=== PATIENT | male | born 1990 ===

== ENCOUNTER 2018-01-16 01:15 | Inpatient (IN) | payer MEDICAID, OTHER ==
[2018-01-16 01:15] VITALS: BMI 25.7
[2018-01-16 02:20] LABS: BASO # 0.1 K/uL (0.0-0.2); BASO % 0.7 % (0.0-2.0); EOS # 0.1 K/uL (0.0-0.7); EOS % 0.5 % (0.0-4.0); HEMOGLOBIN 14.3 g/dL (12.0-18.0); LYMPH # 4.2 K/uL (1.0-4.3); MEAN CELL VOLUME 82.8 fl (80.0-94.0); MEAN CORPUSCULAR HEMOGLOBIN 27.3 pg (27.0-31.0); MEAN CORPUSCULAR HGB CONC 32.9 g/dL (33.0-37.0); MEAN PLATELET VOLUME 9.3 fl (7.2-11.7); MONO % 6.4 % (0.0-10.0); NEUT # 10.8 K/uL (1.8-7.0); NEUT % 66.4 % (50.0-75.0); RBC 5.24 Mil/uL (4.40-5.90); RED CELL DISTRIBUTION WIDTH 14.6 % (11.5-14.5); WHITE BLOOD COUNT 16.3 K/uL (4.8-10.8)
--- NOTE | 2018-01-16 02:23 | CT ---
EXAM: CT Head Without Intravenous Contrast CLINICAL HISTORY: 27 years old, male; Signs and symptoms; Altered mental status/memory loss; Additional info: AMS TECHNIQUE: Axial computed tomography images of the head/brain without intravenous contrast. All CT scans at this facility use one or more dose reduction techniques, viz.: automated exposure control; ma/kV adjustment per patient size (including targeted exams where dose is matched to indication; i.e. head); or iterative reconstruction technique. 311 images are submitted. Coronal and sagittal reformatted images were created and reviewed. COMPARISON: No relevant prior studies available. FINDINGS: Brain: Unremarkable. No hemorrhage. No significant white matter disease. No edema. Ventricles: Unremarkable. No ventriculomegaly. Bones/joints: Unremarkable. No acute fracture. Soft tissues: Unremarkable. Sinuses: Minimal patchy sinus disease. Mastoid air cells: Unremarkable. No mastoid effusion. IMPRESSION: No evidence of an acute intracranial hemorrhage, midline shift or mass effect is identified.
[2018-01-16 02:30] LABS: ALB/GLOB RATIO 1.4 (1.0-2.1); ALBUMIN 4.4 g/dL (3.5-5.0); ALT/SGPT 37 U/L (21-72); AST/SGOT 68 U/L (17-59); BLOOD UREA NITROGEN 23 mg/dl (9-20); CALCIUM 9.2 mg/dL (8.4-10.2); GFR AFRICAN-AMERICAN > 60; GFR NON-AFRICAN AMERICAN 51
--- NOTE | 2018-01-16 03:08 | ED PDOC ---
HPI: Psych/Substance Abuse Time Seen by Provider: 01/16/18 01:29 Chief Complaint (Nursing): Substance Abuse Chief Complaint (Provider): substance abuse ED Caveat: Altered Mental Status, Respiratory Distress History Per: EMS History/Exam Limitations: no limitations Onset/Duration Of Symptoms: Days (01/15/18) Current Symptoms Are (Timing): Better Modifying Factor(s): Narcotics Additional History Per: Patient Additional Complaint(s): 27 year old male with a past medical history of seizure was brought into the ED by ambulance for overdose. Patient was on street unconscious and unresponsive. He has a history of substance abuse and anxiety. Prior to arrival, he had vomited and was given nasal narcan by EMS. Patient became conscious and awake in the ED. PMD: Provider ALONDRA Past Medical History Reviewed: Historical Data, Nursing Documentation, Vital Signs Vital Signs: Last Vital Signs Temp Pulse 97 H 01/16/18 01:19 Resp 18 01/16/18 01:19 BP 163/95 H 01/16/18 01:19 Pulse Ox 91 L 01/16/18 01:19 - Medical History PMH: Seizures (COLLEGE YEARS) Denies: Diabetes, Hepatitis, HIV, HTN, Chronic Kidney Disease, Sexually Transmitted Disease - Surgical History Surgical History: No Surg Hx - Family History Family History: States: Unknown Family Hx - Immunization History Hx Tetanus Toxoid Vaccination: Yes (2011) Hx Influenza Vaccination: No Hx Pneumococcal Vaccination: No - Home Medications Home Medications: Ambulatory Orders Medication Instructions Recorded Benztropine [Cogentin] 1 mg PO BID #60 tab 04/29/17 Divalproex [Depakote DR] 500 mg PO BID #60 tcp 04/29/17 Haloperidol [Haldol] 10 mg PO BID #60 tab 04/29/17 traZODone [Desyrel] 50 mg PO HS PRN #30 tab 04/29/17 - Allergies Allergies/Adverse Reactions: Allergies Allergy/AdvReac Type Severity Reaction Status Date / Time No Known Allergies Allergy Verified 06/19/17 15:00 Review of Systems ROS Statement: Except As Marked, All Systems Reviewed And Found Negative Constitutional: Negative for: Fever Cardiovascular: Negative for: Chest Pain Respiratory: Positive for: Cough. Negative for: Shortness of Breath Gastrointestinal: Positive for: Vomiting Psych: Negative for: Suicidal ideation (homicidal ideation) Physical Exam - Reviewed Nursing Documentation Reviewed: Yes Vital Signs Reviewed: Yes - Physical Exam Appears: Positive for: Non-toxic, No Acute Distress Head Exam: Positive for: ATRAUMATIC, NORMAL INSPECTION, NORMOCEPHALIC Skin: Positive for: Normal Color, Warm, Diaphoresis Eye Exam: Positive for: Normal appearance, EOMI. Negative for: PERRL (pinpoint) ENT: Positive for: Normal ENT Inspection Neck: Positive for: Normal, Painless ROM, Supple. Negative for: Decreased ROM Cardiovascular/Chest: Positive for: Regular Rate, Rhythm. Negative for: Murmur , Tachycardia Respiratory: Positive for: Normal Breath Sounds, Respiratory Distress (mild). Negative for: Wheezing Gastrointestinal/Abdominal: Positive for: Normal Exam, Bowel Sounds, Soft. Negative for: Tenderness Extremity: Positive for: Normal ROM. Negative for: Tenderness, Pedal Edema, Deformity Neurologic/Psych: Positive for: Alert (awake during exam), Oriented (x2). Negative for: Motor/Sensory Deficits - Laboratory Results Result Diagrams: 01/16/18 02:17 01/16/18 02:17 - ECG ECG: Positive for: Interpreted By Me, Viewed By Me ECG Rhythm: Positive for: Normal QRS, Sinus Rhythm (normal). Negative for: ST/ T Changes Rate: 82 O2 Sat by Pulse Oximetry: 91 (RA) Pulse Ox Interpretation: Normal - Radiology X-Ray: Interpreted by Me, Viewed By In X-Ray Interpretation: Infiltrates - Critical Care Total Time (In Min): 60 Documented Critical Care: Time excludes all time spent performint seperately billable procedures Medical Decision Making Medical Decision Making: Time:128 Initial Impression: Substance abuse/overdose with heroin and vomiting Differential Diagnosis includes but is not limited to: Recurrent seizure not possible rule out head injury Initial Plan: --ABD (arterial blood gas) --CT Head w/o contrast --EKG --Alcohol serum --CMP --CPK --Drug screen --CBC w/ differential --Chest portable [RAD] --Reevaluation Time: 222 EXAM: CT Head Without Intravenous Contrast FINDINGS: Brain: Unremarkable. No hemorrhage. No significant white matter disease. No edema. Ventricles: Unremarkable. No ventriculomegaly. Bones/joints: Unremarkable. No acute fracture. Soft tissues: Unremarkable. Sinuses: Minimal patchy sinus disease. Mastoid air cells: Unremarkable. No mastoid effusion. IMPRESSION: No evidence of an acute intracranial hemorrhage, midline shift or mass effect is identified. 0400 Upon reevaluation patient appears alert awake but in respiratory distress, became hypoxic in 80s on nasal cannula, and hypertensive. Patient reports rigors. Noted to have new fever 103. Patient initially refused chest xray ordered upon arrival. CXR was done stat considering worsening condition. CXR reveals left sided infiltrates/edema possible ARDS/aspiration pneumonia. ABG reveals improved respiratory acidosis but still with hypoxia. Acute respiratory failure. BIPAP started. Mild improvement in hypoxia. Preoxygenated. Patient will be intubated for worsening respiratory failure and aspiration pneumonia Hypertension likely from fever r/o hypertensive pulmonary edema from substance abuse: given SL nitro one. Will hold on nitro drip Fever: likely from aspiration pneumonia. Unlikely sepsis. Starting antibiotics. IVF. Symptomatic care provided. EKG n2: sinus tachycardia, unchanged intervals. Patient requires critical care consult which obtained at time. No other consults envisioned at this time. 0500 Patient is stable after intubation. On propofol drip. Hypertension resolved. Ventilating appropriately. CXR post intubation reviewed: ETT in place above andrew. Left pulmonary infiltrates. Scribe Attestation: Documented by Rafia Camara, acting as a scribe for Tim Barboza MD Provider Scribe Attestation: All medical record entries made by the Scribe were at my direction and personally dictated by me. I have reviewed the chart and agree that the record accurately reflects my personal performance of the history, physical exam, medical decision making, and the department course for this patient. I have also personally directed, reviewed, and agree with the discharge instructions and disposition. Procedures - Time-Out Type of Procedure: RSI Site of Procedure: trachea Correct Patient (with visual ID + MR# on ID Band): Yes Correct Procedure: Yes Correct Site Marked: Yes X-Ray Marked: Yes Medication Reconciliation / Bloodwork / Allergies Checked: Yes Physician Name: Jabari - Intubation Time of Intubation: 04:40 (emergent indications) Intubation Method: orotracheal Tube Size (cm): 7.5 Medications: Succinylcholine (etomidate) Breath Sounds after Intubation: equal Intubation Complications: no complications Post Intubation Xray: Yes Disposition - Clinical Impression Clinical Impression: Aspiration pneumonia, Heroin overdose, Substance abuse, Acute respiratory failure with hypoxemia - Patient ED Disposition Is Patient to be Admitted: Yes Discussed With : Lindsay Lu Doctor Will See Patient In The: ED Counseled Patient/Family Regarding: Studies Performed, Diagnosis - Disposition Disposition Time: 06:30 Condition: CRITICAL - Pt Status Changed To: Hospital Disposition Of: Inpatient - Admit Certification Admit to Inpatient:: After my assessment, the patient will require hospitalization for at least two midnights. This is because of the severity of symptoms shown, intensity of services needed, and/or the medical risk in this patient being treated as an outpatient. - POA Present On Arrival: None
[2018-01-16 03:29] LABS: INR 1.1 (0.9-1.2); PARTIAL THROMBOPLASTIN TIME 27.3 Seconds (25.6-37.1); PROTHROMBIN TIME 11.7 Seconds (9.8-13.1)
[2018-01-16 03:48] LABS: ABG ALLEN TEST YES; ARTERIAL BLOOD GAS HCO3 20.1 mmol/L (21-28); ARTERIAL BLOOD GAS HEMOGLOBIN 14.7 g/dL (11.7-17.4); ARTERIAL BLOOD GAS O2 CAPACITY 19.5 mL/dL (16-24); ARTERIAL BLOOD GAS O2 CONTENT 18.3 ML/dL (15-23); ARTERIAL BLOOD GAS O2 SAT 93.7 % (95-98); ARTERIAL BLOOD GAS PCO2 53 mm/Hg (35-45); ARTERIAL BLOOD GAS PH 7.23 (7.35-7.45); ARTERIAL BLOOD GAS PO2 64 mm/Hg (80-100); ARTERIAL BLOOD GAS TCO2 23.8 mmol/L (22-28)
[2018-01-16] MEDS ORDERED: Sodium Chloride 0.9% 1,000 ML IV STA ×2 (04:02→06:04)
[2018-01-16] MEDS ORDERED: Albuterol 0.083% Inhal Sol (2.5 mg/3 mL) UD INH STA (04:11)
[2018-01-16] MEDS ORDERED: Naloxone 0.4 mg/ml Inj (Adult) ONE (04:33)
[2018-01-16] MEDS ORDERED: Naloxone 0.4 mg/ml Inj (Adult) IVP STA (04:33)
[2018-01-16] MEDS ORDERED: Nitroglycerin 50mg in D5W 50 MG/250 ML BOTTLE IV ONE (04:35)
[2018-01-16] MEDS ORDERED: Nitroglycerin 50mg in D5W 0 MG/0 ML BOTTLE IV ONE (04:39)
[2018-01-16] MEDS ORDERED: Etomidate 20 mg/10ml Inj IV ONE ×3 (04:45→05:06)
[2018-01-16] MEDS ORDERED: Succinylcholine 200 mg/10 ml Inj IV ONE ×2 (04:45→05:06)
[2018-01-16 04:50] LABS: ABG ALLEN TEST YES; ARTERIAL BLOOD GAS HCO3 22.9 mmol/L (21-28); ARTERIAL BLOOD GAS HEMOGLOBIN 16.4 g/dL (11.7-17.4); ARTERIAL BLOOD GAS O2 CONTENT 19.1 ML/dL (15-23); ARTERIAL BLOOD GAS PCO2 48 mm/Hg (35-45); ARTERIAL BLOOD GAS PH 7.32 (7.35-7.45); ARTERIAL BLOOD GAS PO2 49 mm/Hg (80-100); ARTERIAL BLOOD GAS TCO2 26.2 mmol/L (22-28)
[2018-01-16] MEDS ORDERED: Propofol 10 mg/ml 3,000 MG/300 ML VIAL ONE (04:56)
[2018-01-16] MEDS ORDERED: Azithromycin 500 MG in Sodium Chloride 0.9% 250 ML IVPB STA (05:02)
[2018-01-16] MEDS ORDERED: Propofol 10 mg/ml Inj (20 ML) IV ONE ×3 (05:04→06:41)
[2018-01-16] MEDS ORDERED: cefTRIAXone (Rocephin) 1 gm Inj ONE (05:04)
[2018-01-16] MEDS ORDERED: Propofol 10 mg/ml 1,000 MG/100 ML VIAL IV SCH (05:15)
[2018-01-16] MEDS ORDERED: Albuterol-Ipratrop 3 mg / 0.5 (3 ml) UD INH PRN (05:17)
[2018-01-16 05:19] LABS: ABG ALLEN TEST YES; ARTERIAL BLOOD GAS HCO3 22.8 mmol/L (21-28); ARTERIAL BLOOD GAS PCO2 47 mm/Hg (35-45); ARTERIAL BLOOD GAS PH 7.32 (7.35-7.45); ARTERIAL BLOOD GAS PO2 50 mm/Hg (80-100); ARTERIAL BLOOD GAS TCO2 25.6 mmol/L (22-28)
[2018-01-16] MEDS ORDERED: Lactated Ringer's 1,000 ML IV SCH ×2 (05:30→10:51)
--- NOTE | 2018-01-16 05:42 | CP.PCM.HP ---
History of Present Illness - History of Present Illness History of Present Illness: CC: heroin o/d, aspiration HPI: This is a 27 y/o male with seizure disorder, ?depression/anxiety, and narcotic abuse who was brought in by EMS for overdose after being found unconscious on the street. Patient received Narcan in the field and regained consciousness and was brought to the ED. However, at some point, his mental status again declined and there was concern for aspiration. Patient had progressively worsening difficulty breathing and developed a fever, and he was intubated. Patient cannot provide history as he is currently sedated on vent. ROS: cannot obtain 2/2 sedated MHx: Seizure disorder, depression/anxiety vs. other psychiatric diagnoses SHx: Unknown Allergies: NKDA Medications: Per med rec Family Hx: Unknown, patient sedated, cannot provide Social Hx: Unknown living condition; likely +EtOH, known +heroin Present on Admission - Present on Admission Any Indicators Present on Admission: No Past Patient History - Infectious Disease Hx of Infectious Diseases: None - Past Social History Smoking Status: Light Smoker < 10 Cigarettes Daily - CARDIAC Hx Hypertension: No - PULMONARY Hx Tuberculosis: No - NEUROLOGICAL Hx Seizures: Yes (COLLEGE YEARS) - HEENT Hx HEENT Problems: No - RENAL Hx Chronic Kidney Disease: No - ENDOCRINE/METABOLIC Hx Endocrine Disorders: No - HEMATOLOGICAL/ONCOLOGICAL Hx Human Immunodeficiency Virus (HIV): No - INTEGUMENTARY Hx Dermatological Problems: No - MUSCULOSKELETAL/RHEUMATOLOGICAL Hx Musculoskeletal Disorders: No - GASTROINTESTINAL Hx Gastrointestinal Disorders: No - GENITOURINARY/GYNECOLOGICAL Hx Sexually Transmitted Disorders: No - PSYCHIATRIC Hx Substance Use: Yes - SURGICAL HISTORY Hx Surgeries: Yes Hx Orthopedic Surgery: Yes (Right Knee surg, Jaw rewired) - ANESTHESIA Hx Anesthesia: Yes Hx Anesthesia Reactions: No Meds Allergies/Adverse Reactions: Allergies Allergy/AdvReac Type Severity Reaction Status Date / Time No Known Allergies Allergy Verified 06/19/17 15:00 Physical Exam - Constitutional Additional comments: intubated and sedated on vent - Head Exam Head Exam: ATRAUMATIC, NORMOCEPHALIC - Eye Exam Eye Exam: EOMI, PERRL - ENT Exam ENT Exam: Mucous Membranes Moist - Neck Exam Neck exam: Positive for: Full Rom - Respiratory Exam Respiratory Exam: Rhonchi Additional comments: coarse breath sounds, on vent - Cardiovascular Exam Cardiovascular Exam: REGULAR RHYTHM, +S1, +S2 - GI/Abdominal Exam GI & Abdominal Exam: Normal Bowel Sounds, Soft - Extremities Exam Extremities exam: Positive for: normal inspection - Neurological Exam Additional comments: sedated - Skin Skin Exam: Dry, Warm Results - Vital Signs Recent Vital Signs: Last Vital Signs Temp 103 F H 01/16/18 04:52 Pulse 97 H 01/16/18 05:15 Resp 22 01/16/18 05:15 BP 126/56 L 01/16/18 05:15 Pulse Ox 96 01/16/18 05:15 - Labs Result Diagrams: 01/16/18 02:17 01/16/18 02:17 Labs: Laboratory Results - last 24 hr 01/16/18 01/16/18 01/16/18 02:17 02:17 03:14 WBC 16.3 H RBC 5.24 Hgb 14.3 Hct 43.4 MCV 82.8 MCH 27.3 MCHC 32.9 L RDW 14.6 H Plt Count 272 MPV 9.3 Neut % (Auto) 66.4 Lymph % (Auto) 26.0 [place] % (Auto) 6.4 Eos % (Auto) 0.5 Baso % (Auto) 0.7 Neut # (Auto) 10.8 H Lymph # (Auto) 4.2 [place] # (Auto) 1.0 H Eos # (Auto) 0.1 Baso # (Auto) 0.1 PT INR APTT pCO2 pO2 HCO3 ABG pH ABG Total CO2 ABG O2 Saturation ABG Base Excess Rich Test ABG Potassium A-a O2 Difference Glucose Lactate Vent Mode FiO2 Sodium 143 Potassium 3.7 Chloride 99 Carbon Dioxide 28 Anion Gap 20 BUN 23 H Creatinine 1.6 H Est GFR ( Amer) > 60 Est GFR (Non-Af Amer) 51 Random Glucose 153 H Calcium 9.2 Total Bilirubin 0.3 AST 68 H ALT 37 Alkaline Phosphatase 63 Total Creatine Kinase 1090 H Total Protein 7.6 Albumin 4.4 Globulin 3.1 Albumin/Globulin Ratio 1.4 Arterial Blood Potassium Alcohol, Quantitative 73 H 01/16/18 01/16/18 03:14 05:00 WBC RBC Hgb Hct MCV MCH MCHC RDW Plt Count MPV Neut % (Auto) Lymph % (Auto) [place] % (Auto) Eos % (Auto) Baso % (Auto) Neut # (Auto) Lymph # (Auto) [place] # (Auto) Eos # (Auto) Baso # (Auto) PT 11.7 INR 1.1 APTT 27.3 pCO2 47 H pO2 50 L HCO3 22.8 ABG pH 7.32 L ABG Total CO2 25.6 ABG O2 Saturation 87.0 L ABG Base Excess -2.2 L Rich Test Yes ABG Potassium 4.6 A-a O2 Difference 604.0 Glucose 128 H Lactate 3.7 H Vent Mode Bipap FiO2 100.0 Sodium 137.0 Potassium Chloride 106.0 Carbon Dioxide Anion Gap BUN Creatinine Est GFR ( Amer) Est GFR (Non-Af Amer) Random Glucose Calcium Total Bilirubin AST ALT Alkaline Phosphatase Total Creatine Kinase Total Protein Albumin Globulin Albumin/Globulin Ratio Arterial Blood Potassium 4.6 Alcohol, Quantitative - Imaging and Cardiology CT scan - head Status: Image reviewed by me (WNL), Report reviewed by me Chest x-ray Status: Image reviewed by me Assessment & Plan (1) Heroin overdose Assessment and Plan: 27 y/o with heroin overdose and subsequent aspiration with fever + ?ARDS. -Admit ICU -Continue vent, sedation with propofol IV -Continue Unasyn IV for now for coverage of aspiration PNA given fever, WC -Tylenol for fever -Duonebs -Protonix for GI PPx on vent -SQ Lovenox for DVT PPx Status: Acute (2) Aspiration pneumonia Status: Acute (3) DVT prophylaxis Status: Acute
[2018-01-16] MEDS: Propofol 10 mg/ml 1,000 MG/100 ML VIAL IV SCH ×4 (06:02→22:15)
[2018-01-16 06:23] LABS: BARBITURATES, UR NEGATIVE (NEGATIVE); PHENCYCLIDINE, UR NEGATIVE (NEGATIVE)
[2018-01-16 06:34] LABS: BENZODIAZEPINES, UR POSITIVE (NEGATIVE); OPIATES, UR POSITIVE (NEGATIVE)
[2018-01-16] MEDS ORDERED: Chlorhexidine Gluconate 1 APPL/PKT TP ONE (08:32)
[2018-01-16] MEDS ORDERED: Clindamycin 600mg/50ml NS 600 MG/50 ML BAG IVPB SCH (09:00)
[2018-01-16] MEDS: Enoxaparin 40 mg Syringe SC SCH (09:05)
--- NOTE | 2018-01-16 09:16 | RAD ---
HISTORY: dyspnea COMPARISON: No prior. FINDINGS: LUNGS: Large left lower lobe consolidation. PLEURA: No significant pleural effusion identified, no pneumothorax apparent. CARDIOVASCULAR: Normal. OSSEOUS STRUCTURES: No significant abnormalities. VISUALIZED UPPER ABDOMEN: Normal. OTHER FINDINGS: None. IMPRESSION: Large left lower lobe consolidation.
--- NOTE | 2018-01-16 09:17 | RAD ---
HISTORY: postintubation COMPARISON: Chest radiograph performed approximately 1.5 hours prior FINDINGS: LUNGS: Stable appearance of large left lower lobe consolidation. PLEURA: No significant pleural effusion identified, no pneumothorax apparent. CARDIOVASCULAR: Normal. OSSEOUS STRUCTURES: No significant abnormalities. VISUALIZED UPPER ABDOMEN: Normal. OTHER FINDINGS: New endotracheal tube with tip between the clavicles and the andrew. IMPRESSION: Interval is with endotracheal tube in satisfactory position. Stable large left lower lobe consolidation.
[2018-01-16] MEDS ORDERED: Influenza Vaccine 18yr & older 0.5 ML/45 MCG SYR IM ONE (09:30)
[2018-01-16] MEDS ORDERED: Pneumococcal 23-Valent Vaccine IM ONE (09:30)
--- NOTE | 2018-01-16 11:07 | CP.CCUPN ---
CCU Subjective - Physician Review Subjective (Free Text): Sedated on high dose Propofol, breathing 19 on AC 12, TV 400ml, 100% oxygen with PEEP 5, SPO2 99%. Other Vitals and I/Os reviewed. No recurrent fever spikes since T spike to 103.1F approx. 10 hours ago. Allergies; Unknown Home meds; Unknown. ROS: No other pertinent negs or positives on 10+ system review: unobtainable / intubated PMSFH: All other historical Nursing and physician documentation reviewed to date; no new pertinent info noted relevant to current medical problems. EXAM- HEENT: no icterus, no gaze preference, pupils equal and reactive, no icterus NECK: No JVD, supple, carotids equal upstroke bilat/no bruits CHEST: decreased BS bases- especially on L; no wheezes audible HEART: regular distant, S1S2, no rubs. ABD: soft, no distention, no tympany, no palp tenderness, BS hypoactive EXT: No edema, no peripheral/ digital cyanosis, no calf tenderness or palpable cords, distal pulses intact and symmetrical. NEURO: no gross focal motor deficits SKIN: no rashes, warm and dry. Multiple tattoos over chest/ arms. LABS: WBC= 16.3 HGB= 14.3 PLTs= 272K Na= 143 K= 3.7 CL= 99 HCO3= 28 BUN/Cr= 23/1.6 BS= 153 HS=4681 UDS= +cocaine, + opiates, +cannabinoids, ETOH= 73 MAJOR PROBLEMS: 1. Heroin OD 2. Acute Resp Failure 2 Aspiration Pneumonia / pneumonitis 3. Multi- substance Abuse and EOH intoxication 4. LAURI vs Azotemia with Dehydration PLAN: 1. MV support, try decreasing FiO2, watch airway pressures, may need to adjust TV to IBW; check repeat ABG. Sputum cultures. 2. Empiric Unasyn coverage. 3. Pulm consult, may need FOB / BAL if infiltrates do not improve. 4. IVF hydration, check repeat CK levels. 5. Urine for spot lytes 6. Watch for substance abuse and ETOH withdrawal symptoms. Add Thiamine and folate supplements. CCU Objective - Vital Signs / Intake & Output Vital Signs (Last 4 hours): Vital Signs Temp Pulse Resp BP Pulse Ox 01/16/18 10:00 92 H 21 99/62 L 100 01/16/18 09:00 91 H 20 107/52 L 99 01/16/18 08:00 98.8 F 86 20 90/53 L 100 01/16/18 07:22 18 Intake and Output (Last 8hrs): Intake & Output 01/15/18 01/16/18 01/16/18 22:59 06:59 14:59 Intake Total 1000 184 Output Total 600 Balance 400 184 Weight 210 lb Intake: IV 1000 84 Intake, Piggyback 100 Oral 0 Output: Urine 600 Urethral (Harley) 600 - Medications Active Medications: Active Medications Generic Name Dose Route Start Last Admin Trade Name Freq PRN Reason Stop Dose Admin Acetaminophen 650 mg 01/16/18 05:18 Tylenol 650 Mg Supp CA Q6H PRN Fever >100.4 F Albuterol/Ipratropium 3 ml 01/16/18 05:17 Duoneb 3 Mg/0.5 Mg (3 Ml) Ud INH RQ6 PRN Shortness of Breath Enoxaparin Sodium 40 mg 01/16/18 09:00 01/16/18 09:05 Lovenox SC 40 mg DAILY [facility] Administration Protocol Folic Acid 1 mg 01/16/18 11:00 Folic Acid PO DAILY SHANTA Ampicillin Sodium/Sulbactam 100 mls @ 100 mls/hr 01/16/18 05:30 01/16/18 09: 32 Sodium 3 gm/ Sodium Chloride IVPB 100 mls/hr Q6 SHANTA Administration Protocol Propofol 1,000 mg in 100 mls @ 22.861 mls/hr 01/16/18 05:57 01/16/18 09:04 Diprivan IV 01/17/18 05:03 25.02 mcg/kg/min .Q4H23M SHANTA 14.3 mls/hr Protocol Administration 40 MCG/KG/MIN Lactated Ringer's 1,000 mls @ 200 mls/hr 01/16/18 10:51 Lactated Ringer's IV 01/16/18 15:29 .Q5H SHANTA Ondansetron HCl 4 mg 01/16/18 05:18 Zofran Inj IVP Q6H PRN Nausea/Vomiting Pantoprazole Sodium 40 mg 01/16/18 09:00 01/16/18 09:05 Protonix Inj IVP 40 mg DAILY SHANTA Administration Thiamine HCl 100 mg 01/16/18 11:00 Vitamin B1 Tab PO DAILY SHANTA - Patient Studies Lab Studies: Lab Studies 01/16/18 01/16/18 01/16/18 Range/Units 05:47 05:00 04:33 WBC (4.8-10.8) K/uL RBC (4.40-5.90) Mil/uL Hgb (12.0-18.0) g/dL Hct (35.0-51.0) % MCV (80.0-94.0) fl MCH (27.0-31.0) pg MCHC (33.0-37.0) g/dL RDW (11.5-14.5) % Plt Count (130-400) K/uL MPV (7.2-11.7) fl Neut % (Auto) (50.0-75.0) % Lymph % (Auto) (20.0-40.0) % [place] % (Auto) (0.0-10.0) % Eos % (Auto) (0.0-4.0) % Baso % (Auto) (0.0-2.0) % Neut # (Auto) (1.8-7.0) K/uL Lymph # (Auto) (1.0-4.3) K/uL [place] # (Auto) (0.0-0.8) K/uL Eos # (Auto) (0.0-0.7) K/uL Baso # (Auto) (0.0-0.2) K/uL PT (9.8-13.1) Seconds INR (0.9-1.2) APTT (25.6-37.1) Seconds pCO2 47 H 48 H (35-45) mm/Hg pO2 50 L 49 L (80-100) mm/Hg HCO3 22.8 22.9 (21-28) mmol/L ABG pH 7.32 L 7.32 L (7.35-7.45) ABG Total CO2 25.6 26.2 (22-28) mmol/L ABG O2 Saturation 87.0 L 87.0 L (95-98) % ABG O2 Content 19.1 (15-23) ML/dL ABG Base Excess -2.2 L -2.0 (-2.0-3.0) mmol/L ABG Hemoglobin 16.4 (11.7-17.4) g/dL ABG Carboxyhemoglobin 1.9 H (0.5-1.5) % POC ABG HHb (Measured) 12.5 H (0.0-5.0) % ABG Methemoglobin 2.3 (0.0-3.0) % ABG O2 Capacity 22.0 (16-24) mL/dL Rich Test Yes Yes ABG Potassium 4.6 (3.6-5.2) mmol/L A-a O2 Difference 604.0 604.0 mm/Hg Hgb O2 Saturation 83.3 L (95.0-98.0) % Glucose 128 H (75-110) mg/dL Lactate 3.7 H (0.7-2.1) mmol/L Vent Mode Bipap Bipap FiO2 100.0 100.0 % Inspiratory BiPAP 12 Expiratory BiPAP 6 Crit Value Called To Crit Value Called By Crit Value Read Back Blood Gas Notified Time Sodium 137.0 (132-148) mmol/l Potassium (3.6-5.0) MMOL/L Chloride 106.0 (98-107) mmol/L Carbon Dioxide (22-30) mmol/L Anion Gap (10-20) BUN (9-20) mg/dl Creatinine (0.8-1.5) mg/dl Est GFR ( Amer) Est GFR (Non-Af Amer) Random Glucose (75-110) mg/dL Calcium (8.4-10.2) mg/dL Total Bilirubin (0.2-1.3) mg/dl AST (17-59) U/L ALT (21-72) U/L Alkaline Phosphatase (38-126) U/L Total Creatine Kinase (55-170) U/L Total Protein (6.3-8.2) G/DL Albumin (3.5-5.0) g/dL Globulin (2.2-3.9) gm/dL Albumin/Globulin Ratio (1.0-2.1) Arterial Blood Potassium 4.6 (3.6-5.2) mmol/L Urine Opiates Screen Positive H (NEGATIVE) Urine Methadone Screen Negative (NEGATIVE) Ur Barbiturates Screen Negative (NEGATIVE) Ur Phencyclidine Scrn Negative (NEGATIVE) Ur Amphetamines Screen Negative (NEGATIVE) U Benzodiazepines Scrn Positive (NEGATIVE) U Oth Cocaine Metabols Positive H (NEGATIVE) U Cannabinoids Screen Positive H (NEGATIVE) Alcohol, Quantitative (0-10) mg/dl 01/16/18 01/16/18 01/16/18 Range/Units 03:14 03:14 02:17 WBC 16.3 H (4.8-10.8) K/uL RBC 5.24 (4.40-5.90) Mil/uL Hgb 14.3 (12.0-18.0) g/dL Hct 43.4 (35.0-51.0) % MCV 82.8 (80.0-94.0) fl MCH 27.3 (27.0-31.0) pg MCHC 32.9 L (33.0-37.0) g/dL RDW 14.6 H (11.5-14.5) % Plt Count 272 (130-400) K/uL MPV 9.3 (7.2-11.7) fl Neut % (Auto) 66.4 (50.0-75.0) % Lymph % (Auto) 26.0 (20.0-40.0) % [place] % (Auto) 6.4 (0.0-10.0) % Eos % (Auto) 0.5 (0.0-4.0) % Baso % (Auto) 0.7 (0.0-2.0) % Neut # (Auto) 10.8 H (1.8-7.0) K/uL Lymph # (Auto) 4.2 (1.0-4.3) K/uL [place] # (Auto) 1.0 H (0.0-0.8) K/uL Eos # (Auto) 0.1 (0.0-0.7) K/uL Baso # (Auto) 0.1 (0.0-0.2) K/uL PT 11.7 (9.8-13.1) Seconds INR 1.1 (0.9-1.2) APTT 27.3 (25.6-37.1) Seconds pCO2 (35-45) mm/Hg pO2 (80-100) mm/Hg HCO3 (21-28) mmol/L ABG pH (7.35-7.45) ABG Total CO2 (22-28) mmol/L ABG O2 Saturation (95-98) % ABG O2 Content (15-23) ML/dL ABG Base Excess (-2.0-3.0) mmol/L ABG Hemoglobin (11.7-17.4) g/dL ABG Carboxyhemoglobin (0.5-1.5) % POC ABG HHb (Measured) (0.0-5.0) % ABG Methemoglobin (0.0-3.0) % ABG O2 Capacity (16-24) mL/dL Rich Test ABG Potassium (3.6-5.2) mmol/L A-a O2 Difference mm/Hg Hgb O2 Saturation (95.0-98.0) % Glucose (75-110) mg/dL Lactate (0.7-2.1) mmol/L Vent Mode FiO2 % Inspiratory BiPAP Expiratory BiPAP Crit Value Called To Crit Value Called By Crit Value Read Back Blood Gas Notified Time Sodium (132-148) mmol/l Potassium (3.6-5.0) MMOL/L Chloride (98-107) mmol/L Carbon Dioxide (22-30) mmol/L Anion Gap (10-20) BUN (9-20) mg/dl Creatinine (0.8-1.5) mg/dl Est GFR ( Amer) Est GFR (Non-Af Amer) Random Glucose (75-110) mg/dL Calcium (8.4-10.2) mg/dL Total Bilirubin (0.2-1.3) mg/dl AST (17-59) U/L ALT (21-72) U/L Alkaline Phosphatase (38-126) U/L Total Creatine Kinase 1090 H (55-170) U/L Total Protein (6.3-8.2) G/DL Albumin (3.5-5.0) g/dL Globulin (2.2-3.9) gm/dL Albumin/Globulin Ratio (1.0-2.1) Arterial Blood Potassium (3.6-5.2) mmol/L Urine Opiates Screen (NEGATIVE) Urine Methadone Screen (NEGATIVE) Ur Barbiturates Screen (NEGATIVE) Ur Phencyclidine Scrn (NEGATIVE) Ur Amphetamines Screen (NEGATIVE) U Benzodiazepines Scrn (NEGATIVE) U Oth Cocaine Metabols (NEGATIVE) U Cannabinoids Screen (NEGATIVE) Alcohol, Quantitative (0-10) mg/dl 01/16/18 01/16/18 Range/Units 02:17 01:35 WBC (4.8-10.8) K/uL RBC (4.40-5.90) Mil/uL Hgb (12.0-18.0) g/dL Hct (35.0-51.0) % MCV (80.0-94.0) fl MCH (27.0-31.0) pg MCHC (33.0-37.0) g/dL RDW (11.5-14.5) % Plt Count (130-400) K/uL MPV (7.2-11.7) fl Neut % (Auto) (50.0-75.0) % Lymph % (Auto) (20.0-40.0) % [place] % (Auto) (0.0-10.0) % Eos % (Auto) (0.0-4.0) % Baso % (Auto) (0.0-2.0) % Neut # (Auto) (1.8-7.0) K/uL Lymph # (Auto) (1.0-4.3) K/uL [place] # (Auto) (0.0-0.8) K/uL Eos # (Auto) (0.0-0.7) K/uL Baso # (Auto) (0.0-0.2) K/uL PT (9.8-13.1) Seconds INR (0.9-1.2) APTT (25.6-37.1) Seconds pCO2 53 H (35-45) mm/Hg pO2 64 L (80-100) mm/Hg HCO3 20.1 L (21-28) mmol/L ABG pH 7.23 L (7.35-7.45) ABG Total CO2 23.8 (22-28) mmol/L ABG O2 Saturation 93.7 L (95-98) % ABG O2 Content 18.3 (15-23) ML/dL ABG Base Excess -5.9 L (-2.0-3.0) mmol/L ABG Hemoglobin 14.7 (11.7-17.4) g/dL ABG Carboxyhemoglobin 2.7 H (0.5-1.5) % POC ABG HHb (Measured) 6.0 H (0.0-5.0) % ABG Methemoglobin 2.5 (0.0-3.0) % ABG O2 Capacity 19.5 (16-24) mL/dL Rich Test Yes ABG Potassium (3.6-5.2) mmol/L A-a O2 Difference 583.0 mm/Hg Hgb O2 Saturation 88.8 L (95.0-98.0) % Glucose (75-110) mg/dL Lactate (0.7-2.1) mmol/L Vent Mode FiO2 100.0 % Inspiratory BiPAP Expiratory BiPAP Crit Value Called To Dr sania worthy Crit Value Called By Carmita Crit Value Read Back Y Blood Gas Notified Time 124 Sodium 143 (132-148) mmol/l Potassium 3.7 (3.6-5.0) MMOL/L Chloride 99 (98-107) mmol/L Carbon Dioxide 28 (22-30) mmol/L Anion Gap 20 (10-20) BUN 23 H (9-20) mg/dl Creatinine 1.6 H (0.8-1.5) mg/dl Est GFR ( Amer) > 60 Est GFR (Non-Af Amer) 51 Random Glucose 153 H (75-110) mg/dL Calcium 9.2 (8.4-10.2) mg/dL Total Bilirubin 0.3 (0.2-1.3) mg/dl AST 68 H (17-59) U/L ALT 37 (21-72) U/L Alkaline Phosphatase 63 (38-126) U/L Total Creatine Kinase (55-170) U/L Total Protein 7.6 (6.3-8.2) G/DL Albumin 4.4 (3.5-5.0) g/dL Globulin 3.1 (2.2-3.9) gm/dL Albumin/Globulin Ratio 1.4 (1.0-2.1) Arterial Blood Potassium (3.6-5.2) mmol/L Urine Opiates Screen (NEGATIVE) Urine Methadone Screen (NEGATIVE) Ur Barbiturates Screen (NEGATIVE) Ur Phencyclidine Scrn (NEGATIVE) Ur Amphetamines Screen (NEGATIVE) U Benzodiazepines Scrn (NEGATIVE) U Oth Cocaine Metabols (NEGATIVE) U Cannabinoids Screen (NEGATIVE) Alcohol, Quantitative 73 H (0-10) mg/dl Laboratory Results - last 24 hr 01/16/18 01/16/18 01/16/18 01:35 02:17 02:17 WBC 16.3 H RBC 5.24 Hgb 14.3 Hct 43.4 MCV 82.8 MCH 27.3 MCHC 32.9 L RDW 14.6 H Plt Count 272 MPV 9.3 Neut % (Auto) 66.4 Lymph % (Auto) 26.0 [place] % (Auto) 6.4 Eos % (Auto) 0.5 Baso % (Auto) 0.7 Neut # (Auto) 10.8 H Lymph # (Auto) 4.2 [place] # (Auto) 1.0 H Eos # (Auto) 0.1 Baso # (Auto) 0.1 PT INR APTT pCO2 53 H pO2 64 L HCO3 20.1 L ABG pH 7.23 L ABG Total CO2 23.8 ABG O2 Saturation 93.7 L ABG O2 Content 18.3 ABG Base Excess -5.9 L ABG Hemoglobin 14.7 ABG Carboxyhemoglobin 2.7 H POC ABG HHb (Measured) 6.0 H ABG Methemoglobin 2.5 ABG O2 Capacity 19.5 Rich Test Yes ABG Potassium A-a O2 Difference 583.0 Hgb O2 Saturation 88.8 L Glucose Lactate Vent Mode FiO2 100.0 Inspiratory BiPAP Expiratory BiPAP Crit Value Called To Dr sania worthy Crit Value Called By 333 Crit Value Read Back Y Blood Gas Notified Time 124 Sodium 143 Potassium 3.7 Chloride 99 Carbon Dioxide 28 Anion Gap 20 BUN 23 H Creatinine 1.6 H Est GFR ( Amer) > 60 Est GFR (Non-Af Amer) 51 Random Glucose 153 H Calcium 9.2 Total Bilirubin 0.3 AST 68 H ALT 37 Alkaline Phosphatase 63 Total Creatine Kinase Total Protein 7.6 Albumin 4.4 Globulin 3.1 Albumin/Globulin Ratio 1.4 Arterial Blood Potassium Urine Opiates Screen Urine Methadone Screen Ur Barbiturates Screen Ur Phencyclidine Scrn Ur Amphetamines Screen U Benzodiazepines Scrn U Oth Cocaine Metabols U Cannabinoids Screen Alcohol, Quantitative 73 H 01/16/18 01/16/18 01/16/18 03:14 03:14 04:33 WBC RBC Hgb Hct MCV MCH MCHC RDW Plt Count MPV Neut % (Auto) Lymph % (Auto) [place] % (Auto) Eos % (Auto) Baso % (Auto) Neut # (Auto) Lymph # (Auto) [place] # (Auto) Eos # (Auto) Baso # (Auto) PT 11.7 INR 1.1 APTT 27.3 pCO2 48 H pO2 49 L HCO3 22.9 ABG pH 7.32 L ABG Total CO2 26.2 ABG O2 Saturation 87.0 L ABG O2 Content 19.1 ABG Base Excess -2.0 ABG Hemoglobin 16.4 ABG Carboxyhemoglobin 1.9 H POC ABG HHb (Measured) 12.5 H ABG Methemoglobin 2.3 ABG O2 Capacity 22.0 Rich Test Yes ABG Potassium A-a O2 Difference 604.0 Hgb O2 Saturation 83.3 L Glucose Lactate Vent Mode Bipap FiO2 100.0 Inspiratory BiPAP 12 Expiratory BiPAP 6 Crit Value Called To Crit Value Called By Crit Value Read Back Blood Gas Notified Time Sodium Potassium Chloride Carbon Dioxide Anion Gap BUN Creatinine Est GFR ( Amer) Est GFR (Non-Af Amer) Random Glucose Calcium Total Bilirubin AST ALT Alkaline Phosphatase Total Creatine Kinase 1090 H Total Protein Albumin Globulin Albumin/Globulin Ratio Arterial Blood Potassium Urine Opiates Screen Urine Methadone Screen Ur Barbiturates Screen Ur Phencyclidine Scrn Ur Amphetamines Screen U Benzodiazepines Scrn U Oth Cocaine Metabols U Cannabinoids Screen Alcohol, Quantitative 01/16/18 01/16/18 05:00 05:47 WBC RBC Hgb Hct MCV MCH MCHC RDW Plt Count MPV Neut % (Auto) Lymph % (Auto) [place] % (Auto) Eos % (Auto) Baso % (Auto) Neut # (Auto) Lymph # (Auto) [place] # (Auto) Eos # (Auto) Baso # (Auto) PT INR APTT pCO2 47 H pO2 50 L HCO3 22.8 ABG pH 7.32 L ABG Total CO2 25.6 ABG O2 Saturation 87.0 L ABG O2 Content ABG Base Excess -2.2 L ABG Hemoglobin ABG Carboxyhemoglobin POC ABG HHb (Measured) ABG Methemoglobin ABG O2 Capacity Rich Test Yes ABG Potassium 4.6 A-a O2 Difference 604.0 Hgb O2 Saturation Glucose 128 H Lactate 3.7 H Vent Mode Bipap FiO2 100.0 Inspiratory BiPAP Expiratory BiPAP Crit Value Called To Crit Value Called By Crit Value Read Back Blood Gas Notified Time Sodium 137.0 Potassium Chloride 106.0 Carbon Dioxide Anion Gap BUN Creatinine Est GFR ( Amer) Est GFR (Non-Af Amer) Random Glucose Calcium Total Bilirubin AST ALT Alkaline Phosphatase Total Creatine Kinase Total Protein Albumin Globulin Albumin/Globulin Ratio Arterial Blood Potassium 4.6 Urine Opiates Screen Positive H Urine Methadone Screen Negative Ur Barbiturates Screen Negative Ur Phencyclidine Scrn Negative Ur Amphetamines Screen Negative U Benzodiazepines Scrn Positive U Oth Cocaine Metabols Positive H U Cannabinoids Screen Positive H Alcohol, Quantitative EKG/Cardiology Studies: Cardiology / EKG Studies 01/16/18 01:29 ELECTROCARDIOGRAM Stat Comment: Mode Of Transportation: Reason For Exam: dyspnea Fingerstick Blood Sugar Results: 167 Critical Care Progress Note - Ventilator Checklist Head of Bed 30 Degrees: Yes Daily Sedation Vacation: No Daily Assessment of Readiness to Wean: No Daily Spontaneous Breathing Trial: No PUD Prophalyxis: Yes DVT Prophylaxis: Yes Oral Care with Chlorhexidine Gluconate {CHG}: Yes - Vent Settings MODE:: SPONT INTERMIT MECH VENT TIDAL VOLUME:: 400 RESP RATE:: 12 FIO2:: 100 PEEP:: 5 - Extremities/Vascular Does the Patient have a Central Venous Catheter?: No Does the Patient need a Central Venous Catheter?: No Does the Patient have a Harley Catheter?: Yes Does the Patient need a Harley Catheter?: Yes Catheter Insertion Criteria: Need for accurate measurement of output in critically ill patient - Restraints Justification for Restraints: High risk for self extubation, High risk for removing IV access, High risk for harming self - Prophylaxis GI Prophylaxis GI: PPI - Prophylaxis DVT Prophylaxis DVT: Lovenox - Nutrition Nutrition: Nutrition Category Date Time Status NPO Diet [DIET] Diets 01/16/18 Breakfast Active
[2018-01-16 11:29] LABS: ABG ALLEN TEST YES; ARTERIAL BLOOD GAS HCO3 23.6 mmol/L (21-28); ARTERIAL BLOOD GAS O2 SAT 99.6 % (95-98); ARTERIAL BLOOD GAS PCO2 57 mm/Hg (35-45); ARTERIAL BLOOD GAS PH 7.27 (7.35-7.45); ARTERIAL BLOOD GAS PO2 130 mm/Hg (80-100); ARTERIAL BLOOD GAS TCO2 27.9 mmol/L (22-28)
--- NOTE | 2018-01-16 20:25 | CARD ---
APPROVED REPORT EKG Measurement Heart [id number] [place] [id number] <Conclusion> Sinus tachycardia Rightward axis Nonspecific ST abnormality Abnormal ECG
--- NOTE | 2018-01-16 20:26 | CARD ---
APPROVED REPORT EKG Measurement Heart [id number] CT [id number] <Conclusion> Normal sinus rhythm Possible Acute pericarditis vs early repolarization pattern Abnormal ECG
[2018-01-17] MEDS: Propofol 10 mg/ml 1,000 MG/100 ML VIAL IV SCH (02:38)
[2018-01-17 05:17] LABS: ABG ALLEN TEST YES; ARTERIAL BLOOD GAS HCO3 29.9 mmol/L (21-28); ARTERIAL BLOOD GAS HEMOGLOBIN 11.8 g/dL (11.7-17.4); ARTERIAL BLOOD GAS O2 CAPACITY 16.2 mL/dL (16-24); ARTERIAL BLOOD GAS O2 CONTENT 16.1 ML/dL (15-23); ARTERIAL BLOOD GAS O2 SAT 99.1 % (95-98); ARTERIAL BLOOD GAS PCO2 61 mm/Hg (35-45); ARTERIAL BLOOD GAS PH 7.35 (7.35-7.45); ARTERIAL BLOOD GAS PO2 86 mm/Hg (80-100); ARTERIAL BLOOD GAS TCO2 35.6 mmol/L (22-28)
[2018-01-17 05:51] LABS: HEMOGLOBIN 11.9 g/dL (12.0-18.0); MEAN CORPUSCULAR HEMOGLOBIN 26.9 pg (27.0-31.0); MEAN CORPUSCULAR HGB CONC 32.8 g/dL (33.0-37.0); RBC 4.41 Mil/uL (4.40-5.90); RED CELL DISTRIBUTION WIDTH 14.4 % (11.5-14.5)
[2018-01-17 06:07] LABS: BLOOD UREA NITROGEN 13 mg/dl (9-20); CALCIUM 7.8 mg/dL (8.4-10.2); GFR AFRICAN-AMERICAN > 60; GFR NON-AFRICAN AMERICAN > 60
[2018-01-17 07:17] LABS: ABG ALLEN TEST YES; ARTERIAL BLOOD GAS HCO3 28.5 mmol/L (21-28); ARTERIAL BLOOD GAS HEMOGLOBIN 12.4 g/dL (11.7-17.4); ARTERIAL BLOOD GAS O2 CAPACITY 17.2 mL/dL (16-24); ARTERIAL BLOOD GAS O2 CONTENT 17.1 ML/dL (15-23); ARTERIAL BLOOD GAS O2 SAT 99.6 % (95-98); ARTERIAL BLOOD GAS PCO2 61 mm/Hg (35-45); ARTERIAL BLOOD GAS PH 7.33 (7.35-7.45); ARTERIAL BLOOD GAS PO2 115 mm/Hg (80-100); ARTERIAL BLOOD GAS TCO2 34.1 mmol/L (22-28)
--- NOTE | 2018-01-17 08:09 | CP.PCM.PCO ---
Physician Communication Note - Physician Communication Note Physician Communication Note: Patient extubated himself at 7AM.
[2018-01-17] MEDS: Enoxaparin 40 mg Syringe SC SCH (08:22)
--- NOTE | 2018-01-17 10:58 | RAD ---
HISTORY: Intubated. COMPARISON: Chest radiograph dated 01/16/2018. FINDINGS: LUNGS: Stable appearance of dense left lung consolidation. PLEURA: No significant pleural effusion identified, no pneumothorax apparent. CARDIOVASCULAR: Normal. OSSEOUS STRUCTURES: No significant abnormalities. VISUALIZED UPPER ABDOMEN: Normal. OTHER FINDINGS: New enteric tube with tip in the stomach. Endotracheal tube, unchanged. IMPRESSION: New enteric tube in satisfactory position. Endotracheal tube, unchanged. Stable appearance of dense left lung consolidation.
--- NOTE | 2018-01-17 11:01 | CP.PCM.PN ---
Subjective - Date & Time of Evaluation Date of Evaluation: 01/17/18 Time of Evaluation: 10:30 - Subjective Subjective: Pt self extubated this am, saturating well on 4 liter NC able to tolerate liquid diet - will upgrade to Soft diet Febrile + cough denies SOB Pt is awake , alert, oriented answers questions appropriately denies CP no PERALTA, no dizziness denies pain anywhere in his body able to move all extremities no abd pain. Objective - Vital Signs/Intake and Output Vital Signs (last 24 hours): Temp Pulse Resp BP Pulse Ox 98.3 F 100 H 20 113/56 L 97 01/17/18 08:00 01/17/18 10:00 01/17/18 10:00 01/17/18 10:00 01/17/18 10:00 Intake and Output: 01/17/18 01/17/18 06:59 18:59 Intake Total 3200 574 Output Total 900 Balance 2300 574 - Medications Medications: Current Medications Acetaminophen (Tylenol 650 Mg Supp) 650 mg NM Q6H PRN PRN Reason: Fever >100.4 F Albuterol/Ipratropium (Duoneb 3 Mg/0.5 Mg (3 Ml) Ud) 3 ml INH RQ6 PRN PRN Reason: Shortness of Breath Albuterol/Ipratropium (Duoneb 3 Mg/0.5 Mg (3 Ml) Ud) 3 ml INH RQID SHANTA Divalproex Sodium (Depakote Dr(*Bid*)) 500 mg PO BID [facility] Enoxaparin Sodium (Lovenox) 40 mg SC DAILY [facility] PRN Reason: Protocol Last Admin: 01/17/18 08:22 Dose: 40 mg Folic Acid (Folic Acid) 1 mg PO DAILY [facility] Last Admin: 01/17/18 08:22 Dose: 1 mg Ampicillin Sodium/Sulbactam (Sodium 3 gm/ Sodium Chloride) 100 mls @ 100 mls/ hr IVPB Q6 SHANTA PRN Reason: Protocol Last Admin: 01/17/18 09:21 Dose: 100 mls/hr Ondansetron HCl (Zofran Inj) 4 mg IVP Q6H PRN PRN Reason: Nausea/Vomiting Pantoprazole Sodium (Protonix Inj) 40 mg IVP DAILY [facility] Last Admin: 01/17/18 08:22 Dose: 40 mg Thiamine HCl (Vitamin B1 Tab) 100 mg PO DAILY [facility] Last Admin: 01/17/18 08:23 Dose: 100 mg Trazodone HCl (Desyrel) 50 mg PO HS PRN PRN Reason: Insomnia - Labs Labs: 01/17/18 04:41 01/17/18 04:41 PT 11.7 Seconds (9.8-13.1) 01/16/18 03:14 INR 1.1 (0.9-1.2) 01/16/18 03:14 APTT 27.3 Seconds (25.6-37.1) 01/16/18 03:14 - Constitutional Appears: No Acute Distress - Head Exam Head Exam: NORMAL INSPECTION, NORMOCEPHALIC - Eye Exam Eye Exam: EOMI, Normal appearance Pupil Exam: NORMAL ACCOMODATION - ENT Exam ENT Exam: Mucous Membranes Dry, Normal External Ear Exam - Neck Exam Neck Exam: Full ROM. absent: Meningismus - Respiratory Exam Respiratory Exam: Rales, Rhonchi. absent: Wheezes, Respiratory Distress - Cardiovascular Exam Cardiovascular Exam: REGULAR RHYTHM, +S1, +S2 - GI/Abdominal Exam GI & Abdominal Exam: Soft, Normal Bowel Sounds. absent: Tenderness - Extremities Exam Extremities Exam: Full ROM, Normal Capillary Refill, Normal Inspection. absent : Calf Tenderness, Joint Swelling, Pedal Edema, Tenderness - Back Exam Back Exam: Full ROM. absent: CVA tenderness (L), CVA tenderness (R), paraspinal tenderness, vertebral tenderness - Neurological Exam Neurological Exam: Alert, Awake, CN II-XII Intact, Oriented x3 Neuro motor strength exam: Left Upper Extremity: 5, Right Upper Extremity: 5, Left Lower Extremity: 5, Right Lower Extremity: 5 - Psychiatric Exam Psychiatric exam: Normal Affect, Normal Mood - Skin Skin Exam: Dry, Normal Color, Warm Assessment and Plan (1) Acute respiratory failure with hypoxemia Status: Acute (2) Drug overdose, multiple drugs Status: Acute (3) Aspiration pneumonia Status: Acute (4) LAURI (acute kidney injury) Status: Acute (5) Rhabdomyolysis Status: Acute (6) Substance abuse Status: Chronic (7) Schizophrenia, paranoid, chronic Status: Chronic - Assessment and Plan (Free Text) Assessment: 27 y/o gent with hx of Paranoid Schizophrenia ( noncompliant with his Psych meds), Hx of 1 episode of Seizure , Polysubstance Abuse was brought in after he was found unresponsive. In the ED , noted to be in respiratory failure , was intubated and admitted to ICU. Urine Drug Screen : + for Opiates, Cocaine , Cannabis . Alcohol level elevated. CXR showed large left lung consolidation. CT of head : neg. 01/17 : Today pt self extubated. (1) Acute respiratory failure with hypoxemia Status: Acute Pt was initially intubated Self extubated today Placed on 100% NRBM post extubation. At present changed to NC 4 liters abd saturating fine. (2) Drug overdose, multiple drugs Status: Acute Drug Tox + for Cocaine, Opiates and Cannabis Alcohol level =72 Pt now awake , oriented admoits to Polysubstance abuse (3) Aspiration pneumonia Status: Acute CXR : large left sidede consolidation Pt is febrile with leukocytosis to 17K Discussed with Dr Seymour - since WBC went up and pt is persistently febrile, we will change abx to IV Zosyn and Vanco Duonebs rpt CXR in am (4) LAURI (acute kidney injury) Status: Acute ? prerenal , from dehydration vs from Rhabdo IVF hydration - will continue\ (5) Rhabdomyolysis Status: Acute CPK level elevated continue IVF hydration (6) Substance abuse Status: Chronic hx of Polysubst abuse counseled pt (7) Schizophrenia, paranoid, chronic Status: Chronic hx of previous admission to Psych at [facility] - restart Depakote and Trazodone, Pt refuses to be on Haldol - Psych consult DVT proph - Lovenox
[2018-01-17] MEDS: Divalproex 500 mg DR(BID formulation) PO SCH ×2 (12:35→16:28)
[2018-01-17] MEDS ORDERED: Sodium Chloride 0.9% 1,000 ML IV SCH (12:45)
--- NOTE | 2018-01-17 12:54 | CP.CCUPN ---
CCU Subjective - Physician Review Subjective (Free Text): 01/17/18 13:02 The patient was Seen/interviewed and examined by me at the bedside during ICU round, Medical records reviewed and Management issues were discussed and formulated with the house staff. Events reviewed 27 Years old Male with PMHx of Seizures,? Depression/anxiety, substance abuse and narcotic abuse Who was brought into the ED by ambulance for overdose. Patient was found on street unconscious and unresponsive. Prior to arrival to ER, he had vomited and was given nasal narcan by EMS. Patient became conscious and awake in the ED. However he was intubated for airway protection and aspiration pneumonia Patient self extubated this morning, initially on 100% NRM, now transitioned to 3L nasal cannula. Breathing unlabored, O2 sat 100%. Alert and oriented to self, follows some commands. Clinically hemodynamically improved No Vasopressors Awake, comfortable, NAD This morning labs revealed persistent Leucocytosis, Also patient is febrile to 102.2 Antibiotics switched to IV IV Vancomycin and Piperacillin Sod/Tazobactam CCU Objective - Vital Signs / Intake & Output Vital Signs (Last 4 hours): Vital Signs Temp Pulse Resp BP Pulse Ox 01/17/18 12:00 102.2 F H 100 H 35 H 146/63 90 L 01/17/18 10:00 100 H 20 113/56 L 97 01/17/18 09:00 92 H 18 114/52 L 98 Intake and Output (Last 8hrs): Intake & Output 01/16/18 01/17/18 01/17/18 22:59 06:59 14:59 Intake Total 2440 2030 814 Output Total 194 993 1708 Balance 1540 1130 -386 Weight 210 lb Intake: IV 1600 1400 14 Intake, Piggyback 100 200 Oral 600 Tube Feeding 440 330 Free Water Flush 300 300 Output: Urine [id number] Urethral (Harley) [phone] - Physical Exam Physical Exam Limitations: Positive for: Clinical Condition, Intoxication Head: Positive for: Atraumatic, Normocephalic. Negative for: Tenderness, Contusion, Swelling, Ecchymosis Pupils: Positive for: PERRL. Negative for: Sluggish, Non-Reactive Extroacular Muscles: Positive for: EOMI Conjunctiva: Positive for: Normal Ears: Positive for: Normal Mouth: Positive for: Moist Mucous Membranes Pharnyx: Positive for: Normal. Negative for: ERYTHEMA Nose (Internal): Positive for: Normal Inspection Neck: Positive for: Normal Range of Motion, Trachea Midline. Negative for: Meningeal Signs, MIDLINE TENDERNESS, Paraspinal Tenderness, JVD, Lymphadenopathy , Bruit, Other Respiratory/Chest: Positive for: Decreased Breath Sounds, Rales, Retracting, Rhonchi, Tachypneic. Negative for: Clear to Auscultation, Respiratory Distress , Accessory Muscle Use, Wheezes, Tender to Palpation Cardiovascular: Positive for: Regular Rate and Rhythm, Normal S1, S2, Peripheal Pulses Present. Negative for: Murmurs, Irregular Rhythm, Tachycardic, Bradycardic Abdomen: Positive for: Normal Bowel Sounds. Negative for: Tenderness, Distention, Peritoneal Signs Upper Extremity: Positive for: Normal Inspection, Normal ROM, NORMAL PULSES, Capillary Refill < 2s. Negative for: Cyanosis, Edema, Tenderness, Swelling Lower Extremity: Positive for: Normal Inspection, NORMAL PULSES. Negative for: Edema, CALF TENDERNESS Neurological: Positive for: GCS=15, CN II-XII Intact, Speech Normal, Motor Func Grossly Intact, Normal Sensory Function - Medications Active Medications: Active Medications Generic Name Dose Route Start Last Admin Trade Name Freq PRN Reason Stop Dose Admin Acetaminophen 650 mg 01/16/18 05:18 Tylenol 650 Mg Supp AL Q6H PRN Fever >100.4 F Albuterol/Ipratropium 3 ml 01/16/18 05:17 Duoneb 3 Mg/0.5 Mg (3 Ml) Ud INH RQ6 PRN Shortness of Breath Albuterol/Ipratropium 3 ml 01/17/18 12:00 Duoneb 3 Mg/0.5 Mg (3 Ml) Ud INH RQID SHANTA Divalproex Sodium 500 mg 01/17/18 10:45 01/17/18 12:[address](*Bid*) PO 500 mg BID SHANTA Administration Enoxaparin Sodium 40 mg 01/16/18 09:00 01/17/18 08:22 Lovenox SC 40 mg DAILY SHANTA Administration Protocol Folic Acid 1 mg 01/16/18 11:00 01/17/18 08:22 Folic Acid PO 1 mg DAILY SHANTA Administration Sodium Chloride 1,000 mls @ 100 mls/hr 01/17/18 12:45 Sodium Chloride 0.9% IV 01/18/18 12:41 .Q10H SHANTA Vancomycin HCl 1 gm/ Sodium 250 mls @ 166.667 mls/hr 01/17/18 12:45 Chloride IVPB Q12 [facility] Protocol Piperacillin Sod/Tazobactam 100 mls @ 100 mls/hr 01/17/18 18:00 Sod 3.375 gm/ Sodium Chloride IVPB 0600,1200,1800,0000 [facility] Protocol Ondansetron HCl 4 mg 01/16/18 05:18 Zofran Inj IVP Q6H PRN Nausea/Vomiting Pantoprazole Sodium 40 mg 01/16/18 09:00 01/17/18 08:22 Protonix Inj IVP 40 mg DAILY SHANTA Administration Thiamine HCl 100 mg 01/16/18 11:00 01/17/18 08:23 Vitamin B1 Tab PO 100 mg DAILY SHANTA Administration Trazodone HCl 50 mg 01/17/18 10:36 01/17/18 12:35 Desyrel PO 50 mg HS PRN Administration Insomnia - Patient Studies Lab Studies: Microbiology Studies 01/16/18 10:11 Gram Stain - Final Sputum Lab Studies 01/17/18 01/17/18 01/17/18 Range/Units 09:45 07:12 05:09 WBC (4.8-10.8) K/uL RBC (4.40-5.90) Mil/uL Hgb (12.0-18.0) g/dL Hct (35.0-51.0) % MCV (80.0-94.0) fl MCH (27.0-31.0) pg MCHC (33.0-37.0) g/dL RDW (11.5-14.5) % Plt Count (130-400) K/uL pCO2 61 H 61 H (35-45) mm/Hg pO2 115 H 86 (80-100) mm/Hg HCO3 28.5 H 29.9 H (21-28) mmol/L ABG pH 7.33 L 7.35 (7.35-7.45) ABG Total CO2 34.1 H 35.6 H (22-28) mmol/L ABG O2 Saturation 99.6 H 99.1 H (95-98) % ABG O2 Content 17.1 16.1 (15-23) ML/dL ABG Base Excess 4.6 H 6.4 H (-2.0-3.0) mmol/L ABG Hemoglobin 12.4 11.8 (11.7-17.4) g/dL ABG Carboxyhemoglobin 1.6 H 1.6 H (0.5-1.5) % POC ABG HHb (Measured) 0.4 0.9 (0.0-5.0) % ABG Methemoglobin 1.1 0.7 (0.0-3.0) % ABG O2 Capacity 17.2 16.2 (16-24) mL/dL Rich Test Yes Yes A-a O2 Difference 522.0 408.0 mm/Hg Hgb O2 Saturation 96.9 96.8 (95.0-98.0) % Vent Mode A/c Mechanical Rate 12 FiO2 100.0 80.0 % Tidal Volume 500 PEEP 5 Sodium (132-148) mmol/l Potassium (3.6-5.0) MMOL/L Chloride (98-107) mmol/L Carbon Dioxide (22-30) mmol/L Anion Gap (10-20) BUN (9-20) mg/dl Creatinine (0.8-1.5) mg/dl Est GFR ( Amer) Est GFR (Non-Af Amer) Random Glucose (75-110) mg/dL Calcium (8.4-10.2) mg/dL Total Creatine Kinase 1347 H (55-170) U/L Ur Random Sodium meq/L Ur Random Potassium mmol/L 01/17/18 01/17/18 01/16/18 Range/Units 04:41 04:41 12:53 WBC 17.0 H (4.8-10.8) K/uL RBC 4.41 (4.40-5.90) Mil/uL Hgb 11.9 L D (12.0-18.0) g/dL Hct 36.2 (35.0-51.0) % MCV 82.0 (80.0-94.0) fl MCH 26.9 L (27.0-31.0) pg MCHC 32.8 L (33.0-37.0) g/dL RDW 14.4 (11.5-14.5) % Plt Count 166 D (130-400) K/uL pCO2 (35-45) mm/Hg pO2 (80-100) mm/Hg HCO3 (21-28) mmol/L ABG pH (7.35-7.45) ABG Total CO2 (22-28) mmol/L ABG O2 Saturation (95-98) % ABG O2 Content (15-23) ML/dL ABG Base Excess (-2.0-3.0) mmol/L ABG Hemoglobin (11.7-17.4) g/dL ABG Carboxyhemoglobin (0.5-1.5) % POC ABG HHb (Measured) (0.0-5.0) % ABG Methemoglobin (0.0-3.0) % ABG O2 Capacity (16-24) mL/dL Rich Test A-a O2 Difference mm/Hg Hgb O2 Saturation (95.0-98.0) % Vent Mode Mechanical Rate FiO2 % Tidal Volume PEEP Sodium 141 (132-148) mmol/l Potassium 4.2 (3.6-5.0) MMOL/L Chloride 104 (98-107) mmol/L Carbon Dioxide 31 H (22-30) mmol/L Anion Gap 10 (10-20) BUN 13 (9-20) mg/dl Creatinine 1.1 (0.8-1.5) mg/dl Est GFR ( Amer) > 60 Est GFR (Non-Af Amer) > 60 Random Glucose 94 (75-110) mg/dL Calcium 7.8 L (8.4-10.2) mg/dL Total Creatine Kinase (55-170) U/L Ur Random Sodium 85 meq/L Ur Random Potassium 65.7 mmol/L Laboratory Results - last 24 hr 01/16/18 01/17/18 01/17/18 12:53 04:41 04:41 WBC 17.0 H RBC 4.41 Hgb 11.9 L D Hct 36.2 MCV 82.0 MCH 26.9 L MCHC 32.8 L RDW 14.4 Plt Count 166 D pCO2 pO2 HCO3 ABG pH ABG Total CO2 ABG O2 Saturation ABG O2 Content ABG Base Excess ABG Hemoglobin ABG Carboxyhemoglobin POC ABG HHb (Measured) ABG Methemoglobin ABG O2 Capacity Rich Test A-a O2 Difference Hgb O2 Saturation Vent Mode Mechanical Rate FiO2 Tidal Volume PEEP Sodium 141 Potassium 4.2 Chloride 104 Carbon Dioxide 31 H Anion Gap 10 BUN 13 Creatinine 1.1 Est GFR ( Amer) > 60 Est GFR (Non-Af Amer) > 60 Random Glucose 94 Calcium 7.8 L Total Creatine Kinase Ur Random Sodium 85 Ur Random Potassium 65.7 01/17/18 01/17/18 01/17/18 05:09 07:12 09:45 WBC RBC Hgb Hct MCV MCH MCHC RDW Plt Count pCO2 61 H 61 H pO2 86 115 H HCO3 29.9 H 28.5 H ABG pH 7.35 7.33 L ABG Total CO2 35.6 H 34.1 H ABG O2 Saturation 99.1 H 99.6 H ABG O2 Content 16.1 17.1 ABG Base Excess 6.4 H 4.6 H ABG Hemoglobin 11.8 12.4 ABG Carboxyhemoglobin 1.6 H 1.6 H POC ABG HHb (Measured) 0.9 0.4 ABG Methemoglobin 0.7 1.1 ABG O2 Capacity 16.2 17.2 Rich Test Yes Yes A-a O2 Difference 408.0 522.0 Hgb O2 Saturation 96.8 96.9 Vent Mode A/c Mechanical Rate 12 FiO2 80.0 100.0 Tidal Volume 500 PEEP 5 Sodium Potassium Chloride Carbon Dioxide Anion Gap BUN Creatinine Est GFR ( Amer) Est GFR (Non-Af Amer) Random Glucose Calcium Total Creatine Kinase 1347 H Ur Random Sodium Ur Random Potassium Fingerstick Blood Sugar Results: 167 Review of Systems - Cardiovascular Cardiovascular: absent: As Per HPI, Acrocyanosis, Chest Pain, Chest Pain at Rest , Chest Pain with Activity, Claudication, Diaphoresis, Dyspnea, Dyspnea on Exertion, Edema, Irregular Heart Rhythm, Pain Radiating to Arm/Neck/Jaw, Leg Edema, Leg Ulcers, Lightheadedness, Orthopnea, Palpitations, Paroxysmal Nocturnal Dyspnea, Pedal Edema, Radiating Pain, Rapid Heart Rate, Slow Heart Rate, Syncope, Other, UNREMARKABLE - Respiratory Respiratory: absent: As Per HPI, Cough, Dyspnea, Hemoptysis, Dyspnea on Exertion , Wheezing, Snoring, Stridor, Pain on Inspiration, Chest Congestion, Excessive Mucous Production, Change in Mucous Color, Pain with Coughing, Other, UNREMARKABLE Critical Care Progress Note - Ventilator Checklist Head of Bed 30 Degrees: Yes Daily Sedation Vacation: Yes Daily Assessment of Readiness to Wean: Yes Daily Spontaneous Breathing Trial: Yes PUD Prophalyxis: Yes DVT Prophylaxis: Yes Oral Care with Chlorhexidine Gluconate {CHG}: Yes - Extremities/Vascular Does the Patient have a Central Venous Catheter?: No Does the Patient need a Central Venous Catheter?: No Does the Patient have a Harley Catheter?: No Does the Patient need a Harley Catheter?: No - Nutrition Nutrition: Nutrition Category Date Time Status Regular Diet [DIET] Diets 01/17/18 Lunch Active Assessment/Plan (1) Acute respiratory failure with hypoxemia Current Visit: Yes Status: Acute Priority: High Comment: Patient self extubated this morning, initially on 100% NRM, now transitioned to 3L nasal cannula. Breathing unlabored, O2 sat 100%. Continue IV Vancomycin and Piperacillin Sod/Tazobactam Avoid hyperoxia. Continue nebulizer treatment Maintain aspiration precautions HOB maintained at 30 degrees. Encouraged use of IS Aggressive pulmonary toilet, chest PT, suctioning (2) Aspiration pneumonia Current Visit: Yes Status: Acute Priority: High Comment: Switch to IV Vancomycin and Piperacillin Sod/Tazobactam Maintain aspiration precautions Will Check urine legionella and pneumococcus/strep antigen Mycoplasma And sputum culture to rule out resistant pathogens. Monitor fever curve, Tylenol PRN fevers Trend WBC count, lactate (3) LAURI (acute kidney injury) Current Visit: Yes Status: Acute Comment: IVF hydration Monitor Input/Output, daily weights Monitor renal function with basic metabolic panel (4) Substance abuse Current Visit: Yes Status: Acute Priority: High Comment: Monitor for withdrawal symptoms. (5) DVT prophylaxis Current Visit: Yes Status: Acute Priority: High Comment: Lovenox 40 mg SC DAILY - Assessment and Plan (Free Text) Assessment: # HOB maintained at 30 degrees. Encouraged use of IS # GI/DVT PPX # Stress Ulcer prophylaxis with Protonix 40 mg QD # DVT prophylaxis with SCD, Lovenox # Code Status: Full code Total critical care time 39 minutes
[2018-01-17] MEDS: Albuterol-Ipratrop 3 mg / 0.5 (3 ml) UD INH SCH ×2 (15:54→20:35)
[2018-01-17] MEDS: Benzocaine/Menthol (Cepacol) Lozenge PO PRN (16:28)
[2018-01-17] MEDS: Piperacillin/Tazobact 3.375 GM in Sodium Chloride 0.9% 100 ML IVPB SCH (17:15)
[2018-01-18] MEDS: Benzocaine/Menthol (Cepacol) Lozenge PO PRN ×4 (00:51→22:28)
[2018-01-18 05:40] LABS: BASO % 0.3 % (0.0-2.0); EOS # 0.1 K/uL (0.0-0.7); EOS % 0.8 % (0.0-4.0); HEMOGLOBIN 12.7 g/dL (12.0-18.0); LYMPH # 0.9 K/uL (1.0-4.3); LYMPH % 4.8 % (20.0-40.0); MEAN CELL VOLUME 81.2 fl (80.0-94.0); MEAN CORPUSCULAR HEMOGLOBIN 26.7 pg (27.0-31.0); MEAN PLATELET VOLUME 9.6 fl (7.2-11.7); MONO # 1.4 K/uL (0.0-0.8); MONO % 7.7 % (0.0-10.0); NEUT # 16.1 K/uL (1.8-7.0); NEUT % 86.4 % (50.0-75.0); PLATELET COUNT 182 K/uL (130-400); RBC 4.75 Mil/uL (4.40-5.90); RED CELL DISTRIBUTION WIDTH 14.4 % (11.5-14.5); WHITE BLOOD COUNT 18.6 K/uL (4.8-10.8)
[2018-01-18 05:54] LABS: ALBUMIN 2.9 g/dL (3.5-5.0); ALT/SGPT 48 U/L (21-72); AST/SGOT 68 U/L (17-59); BLOOD UREA NITROGEN 8 mg/dl (9-20); CALCIUM 8.6 mg/dL (8.4-10.2); GFR AFRICAN-AMERICAN > 60; GFR NON-AFRICAN AMERICAN > 60
[2018-01-18] MEDS: Piperacillin/Tazobact 3.375 GM in Sodium Chloride 0.9% 100 ML IVPB SCH ×4 (06:18→17:27)
[2018-01-18] MEDS: Albuterol-Ipratrop 3 mg / 0.5 (3 ml) UD INH SCH ×4 (07:19→19:23)
[2018-01-18] MEDS: Enoxaparin 40 mg Syringe SC SCH (08:30)
[2018-01-18] MEDS: Divalproex 500 mg DR(BID formulation) PO SCH ×2 (08:31→16:28)
--- NOTE | 2018-01-18 09:53 | CP.PCM.PN ---
Subjective - Date & Time of Evaluation Date of Evaluation: 01/18/18 Time of Evaluation: 10:15 - Subjective Subjective: Patient larry and examined at bedside. Patient has no specific complaints. tolerated oral diet. on nasal canula Objective - Vital Signs/Intake and Output Vital Signs (last 24 hours): Temp Pulse Resp BP Pulse Ox 99.8 F H 98 H 25 H 149/70 91 L 01/18/18 04:00 01/18/18 06:00 01/18/18 06:00 01/18/18 06:00 01/18/18 06:00 Intake and Output: 01/18/18 01/18/18 06:59 18:59 Intake Total 1200 Output Total 500 Balance 700 - Medications Medications: Current Medications Acetaminophen (Tylenol 325mg Tab) 650 mg PO Q4 PRN PRN Reason: Fever >100.4 F Last Admin: 01/17/18 20:15 Dose: 650 mg Albuterol/Ipratropium (Duoneb 3 Mg/0.5 Mg (3 Ml) Ud) 3 ml INH RQ6 PRN PRN Reason: Shortness of Breath Albuterol/Ipratropium (Duoneb 3 Mg/0.5 Mg (3 Ml) Ud) 3 ml INH RQID [facility] Last Admin: 01/18/18 07:19 Dose: 3 ml Benzocaine/Menthol (Cepacol Sore Throat) 1 ricardo PO Q2 PRN PRN Reason: Sore Throat Last Admin: 01/18/18 06:23 Dose: 1 ricardo Divalproex Sodium (Depakote Dr(*Bid*)) 500 mg PO BID [facility] Last Admin: 01/18/18 08:31 Dose: 500 mg Enoxaparin Sodium (Lovenox) 40 mg SC DAILY SHANTA PRN Reason: Protocol Last Admin: 01/18/18 08:30 Dose: 40 mg Folic Acid (Folic Acid) 1 mg PO DAILY [facility] Last Admin: 01/18/18 08:32 Dose: 1 mg Sodium Chloride (Sodium Chloride 0.9%) 1,000 mls @ 100 mls/hr IV .Q10H [facility] Stop: 01/18/18 12:41 Last Admin: 01/17/18 13:38 Dose: 100 mls/hr Vancomycin HCl 1 gm/ Sodium (Chloride) 250 mls @ 166.667 mls/hr IVPB Q12 [facility] PRN Reason: Protocol Last Admin: 01/17/18 20:21 Dose: 166.667 mls/hr Piperacillin Sod/Tazobactam (Sod 3.375 gm/ Sodium Chloride) 100 mls @ 100 mls/ hr IVPB 0600,1200,1800,0000 [facility] PRN Reason: Protocol Last Admin: 01/18/18 06:18 Dose: 100 mls/hr Ondansetron HCl (Zofran Inj) 4 mg IVP Q6H PRN PRN Reason: Nausea/Vomiting Pantoprazole Sodium (Protonix Inj) 40 mg IVP DAILY [facility] Last Admin: 01/18/18 08:31 Dose: 40 mg Thiamine HCl (Vitamin B1 Tab) 100 mg PO DAILY [facility] Last Admin: 01/18/18 08:34 Dose: 100 mg Trazodone HCl (Desyrel) 50 mg PO HS PRN PRN Reason: Insomnia Last Admin: 01/17/18 12:35 Dose: 50 mg - Labs Labs: 01/18/18 04:45 01/18/18 04:45 PT 11.7 Seconds (9.8-13.1) 01/16/18 03:14 INR 1.1 (0.9-1.2) 01/16/18 03:14 APTT 27.3 Seconds (25.6-37.1) 01/16/18 03:14 - Constitutional Appears: Well, No Acute Distress - Head Exam Head Exam: ATRAUMATIC, NORMAL INSPECTION - ENT Exam ENT Exam: Mucous Membranes Moist - Neck Exam Neck Exam: Full ROM - Respiratory Exam Respiratory Exam: Rhonchi - Cardiovascular Exam Cardiovascular Exam: REGULAR RHYTHM, +S1, +S2 - Extremities Exam Extremities Exam: Full ROM, Normal Inspection - Neurological Exam Neurological Exam: Alert, Awake, Oriented x3 - Skin Skin Exam: Normal Color Assessment and Plan - Assessment and Plan (Free Text) Plan: Polysubstance overdose: patient has h/o psych axis one disorder, consider psych eval for bi-polar, patient was previously on haldol -Aspiration pneumonia: 2nd above, contineu vanco/zosyn, f/u cultures -Hypoxic respiratory failure: self extubated, tolerated nasal canula -Brenda: Rhabdomyolysis: continue IVF, -dvt ppx lovenox/PPI ppx -OOB to chair -no melissa -OOB to chair -PT/OT Patient remains hemodynamically stable.
[2018-01-18 12:40] LABS: BANDS 1 % (0-2); EOSINOPHIL 2 % (0-7); LYMPHOCYTE 5 % (20-50); MONOCYTE 6 % (0-10); NEUTROPHIL 86 % (42-75); PLATELET ESTIMATE NORMAL (NORMAL); TOTAL CELLS COUNTED 100
--- NOTE | 2018-01-18 15:00 | CP.PCM.PN ---
Subjective - Date & Time of Evaluation Date of Evaluation: 01/18/18 Time of Evaluation: 10:00 - Subjective Subjective: Patient seen and examined at bedside. He states that he feels a little better. Fever of 102 yesterday evening. Eating well, no complaints currently. On nasal cannula. Objective - Vital Signs/Intake and Output Vital Signs (last 24 hours): Temp Pulse Resp BP Pulse Ox 98.3 F 83 28 H 137/59 L 98 01/18/18 12:00 01/18/18 12:00 01/18/18 12:00 01/18/18 12:00 01/18/18 12:00 Intake and Output: 01/18/18 01/18/18 06:59 18:59 Intake Total 1200 850 Output Total 500 1350 Balance 700 -500 - Medications Medications: Current Medications Acetaminophen (Tylenol 325mg Tab) 650 mg PO Q4 PRN PRN Reason: Fever >100.4 F Last Admin: 01/17/18 20:15 Dose: 650 mg Albuterol/Ipratropium (Duoneb 3 Mg/0.5 Mg (3 Ml) Ud) 3 ml INH RQ6 PRN PRN Reason: Shortness of Breath Albuterol/Ipratropium (Duoneb 3 Mg/0.5 Mg (3 Ml) Ud) 3 ml INH RQID [facility] Last Admin: 01/18/18 11:00 Dose: 3 ml Benzocaine/Menthol (Cepacol Sore Throat) 1 ricardo PO Q2 PRN PRN Reason: Sore Throat Last Admin: 01/18/18 06:23 Dose: 1 ricardo Divalproex Sodium (Depakote Dr(*Bid*)) 500 mg PO BID [facility] Last Admin: 01/18/18 08:31 Dose: 500 mg Enoxaparin Sodium (Lovenox) 40 mg SC DAILY [facility] PRN Reason: Protocol Last Admin: 01/18/18 08:30 Dose: 40 mg Folic Acid (Folic Acid) 1 mg PO DAILY [facility] Last Admin: 01/18/18 08:32 Dose: 1 mg Vancomycin HCl 1 gm/ Sodium (Chloride) 250 mls @ 166.667 mls/hr IVPB Q12 [facility] PRN Reason: Protocol Last Admin: 01/18/18 10:04 Dose: 166.667 mls/hr Piperacillin Sod/Tazobactam (Sod 3.375 gm/ Sodium Chloride) 100 mls @ 100 mls/ hr IVPB 0600,1200,1800,0000 [facility] PRN Reason: Protocol Last Admin: 01/18/18 12:10 Dose: 100 mls/hr Ondansetron HCl (Zofran Inj) 4 mg IVP Q6H PRN PRN Reason: Nausea/Vomiting Pantoprazole Sodium (Protonix Inj) 40 mg IVP DAILY [facility] Last Admin: 01/18/18 08:31 Dose: 40 mg Thiamine HCl (Vitamin B1 Tab) 100 mg PO DAILY [facility] Last Admin: 01/18/18 08:34 Dose: 100 mg Trazodone HCl (Desyrel) 50 mg PO HS PRN PRN Reason: Insomnia Last Admin: 01/17/18 12:35 Dose: 50 mg - Labs Labs: 01/18/18 04:45 01/18/18 04:45 PT 11.7 Seconds (9.8-13.1) 01/16/18 03:14 INR 1.1 (0.9-1.2) 01/16/18 03:14 APTT 27.3 Seconds (25.6-37.1) 01/16/18 03:14 - Additional Findings Additional findings: Physical exam: Constitutional- cooperative, awake, alert Head- NCAT, PERRL Eye- PERRL, EOMI ENT- normal exam, MMM. Neck- normal inspection, supple, no JVD Respiratory- CTAB, no wheezes rales rhonchi Cardiovascular- RRR, +S1, +S2 no MRG GI/Abdominal- normal bowel sounds, soft, no mass, no hsm Skin- warm, dry. + Tattoos Extremities Exam- normal capillary refill, normal inspection Neurological Exam- alert, awake, oriented Psych- normal mood, normal affect Assessment and Plan - Assessment and Plan (Free Text) Plan: 27 y/o gent with hx of Paranoid Schizophrenia ( noncompliant with his Psych meds), Hx of 1 episode of Seizure , Polysubstance Abuse was brought in after he was found unresponsive. In the ED , noted to be in respiratory failure , was intubated and admitted to ICU. Urine Drug Screen : + for Opiates, Cocaine , Cannabis . Alcohol level elevated. CXR showed large left lung consolidation. CT of head : neg. 3/31 : Today pt self extubated. (1) Acute respiratory failure with hypoxemia- resolving. secondary to aspiration pneumonia and drug overdose Status: Acute Pt was initially intubated, self extubated 01/17/2018 Placed on 100% NRBM post extubation. At present changed to NC 4 liters abd saturating fine. Plan to downgrade to med/surg in AM if no further hypoxia or adverse events (2) Aspiration pneumonia Status: Acute CXR : large left sided consolidation Pt is febrile 102.2 yesterday, afebrile so far today with leukocytosis to 17K, now 18.6 today (increasing) Discussed with Dr Seymour - since WBC went up and pt is persistently febrile, we will change abx to IV Zosyn and Vanco Duonebs rpt CXR in am (3) Drug overdose, multiple drugs- improved mental status Status: Acute Drug Tox + for Cocaine, Opiates and Cannabis Alcohol level =72 on admission Pt now awake , oriented admits to Polysubstance abuse (4) LAURI (acute kidney injury)- resolved Status: Acute Prerenal from dehydration/rhabdo IVF hydration ongoing (5) Rhabdomyolysis, mild, improving Status: Acute CPK level 1347--> 996, trending down continue IVF hydration (6) Substance abuse Status: Chronic hx of Polysubst abuse counseled pt (7) Schizophrenia, paranoid, chronic Status: Chronic hx of previous admission to Psych at [facility] - restart Depakote and Trazodone, Pt refuses to be on Haldol - Psych consult pending DVT proph - Lovenox
[2018-01-19] MEDS: Piperacillin/Tazobact 3.375 GM in Sodium Chloride 0.9% 100 ML IVPB SCH ×5 (00:15→23:46)
[2018-01-19 06:03] LABS: HEMOGLOBIN 12.8 g/dL (12.0-18.0); MEAN CELL VOLUME 81.4 fl (80.0-94.0); MEAN CORPUSCULAR HEMOGLOBIN 27.2 pg (27.0-31.0); MEAN CORPUSCULAR HGB CONC 33.5 g/dL (33.0-37.0); RBC 4.71 Mil/uL (4.40-5.90); RED CELL DISTRIBUTION WIDTH 14.4 % (11.5-14.5); WHITE BLOOD COUNT 11.8 K/uL (4.8-10.8)
[2018-01-19 06:07] LABS: BLOOD UREA NITROGEN 7 mg/dl (9-20); CALCIUM 8.8 mg/dL (8.4-10.2); GFR AFRICAN-AMERICAN > 60; GFR NON-AFRICAN AMERICAN 60
[2018-01-19] MEDS: Albuterol-Ipratrop 3 mg / 0.5 (3 ml) UD INH SCH ×4 (07:06→19:44)
[2018-01-19] MEDS: Enoxaparin 40 mg Syringe SC SCH (09:33)
[2018-01-19] MEDS: Divalproex 500 mg DR(BID formulation) PO SCH ×2 (09:33→17:44)
--- NOTE | 2018-01-19 09:58 | CP.CCUPN ---
CCU Subjective - Physician Review Subjective (Free Text): 01/17/18 13:02 The patient was Seen/interviewed and examined by me at the bedside during ICU round, Medical records reviewed and Management issues were discussed and formulated with the house staff. Events reviewed 27 Years old Male with PMHx of Seizures,? Depression/anxiety, substance abuse and narcotic abuse Who was brought into the ED by ambulance for overdose. Patient was found on street unconscious and unresponsive. Prior to arrival to ER, he had vomited and was given nasal narcan by EMS. Patient became conscious and awake in the ED. However he was intubated for airway protection and aspiration pneumonia Patient self extubated on 01/17 morning, initially on 100% NRM, now transitioned to 3L nasal cannula. Breathing unlabored, O2 sat 100%. Alert and oriented to self, follows commands. Clinically hemodynamically improved No Vasopressors Awake, comfortable, NAD This morning labs revealed resolved Leucocytosis, Also patient is Afebrile Antibiotics was switched to IV IV Vancomycin and Piperacillin Sod/Tazobactam on 01/17 This morning CXR revealed improved L lung infilerate Sputum culture Positive for St aureus CCU Objective - Vital Signs / Intake & Output Vital Signs (Last 4 hours): Vital Signs Temp Pulse Resp BP Pulse Ox 01/19/18 08:00 97.7 F 84 14 144/69 93 L 01/19/18 06:00 66 28 H 139/72 99 Intake and Output (Last 8hrs): Intake & Output 01/18/18 01/19/18 01/19/18 22:59 06:59 14:59 Intake Total 550 250 Output Total 500 Balance 50 250 Intake: IV 400 Intake, Piggyback 250 Oral 150 Output: Urine 500 Urine, Voided 500 Other: # Voids Urine, Voided 1 - Physical Exam Head: Positive for: Atraumatic, Normocephalic. Negative for: Tenderness, Contusion, Swelling, Ecchymosis Pupils: Positive for: PERRL. Negative for: Sluggish, Non-Reactive Extroacular Muscles: Positive for: EOMI Conjunctiva: Positive for: Normal Ears: Positive for: Normal Mouth: Positive for: Moist Mucous Membranes Pharnyx: Positive for: Normal. Negative for: ERYTHEMA Nose (Internal): Positive for: Normal Inspection Neck: Positive for: Normal Range of Motion, Trachea Midline. Negative for: Meningeal Signs, MIDLINE TENDERNESS, Paraspinal Tenderness, JVD, Lymphadenopathy , Bruit, Other Respiratory/Chest: Positive for: Decreased Breath Sounds, Rales, Retracting, Rhonchi, Tachypneic. Negative for: Clear to Auscultation, Respiratory Distress , Accessory Muscle Use, Wheezes, Tender to Palpation Cardiovascular: Positive for: Regular Rate and Rhythm, Normal S1, S2, Peripheal Pulses Present. Negative for: Murmurs, Irregular Rhythm, Tachycardic, Bradycardic Abdomen: Positive for: Normal Bowel Sounds. Negative for: Tenderness, Distention, Peritoneal Signs Upper Extremity: Positive for: Normal Inspection, Normal ROM, NORMAL PULSES, Capillary Refill < 2s. Negative for: Cyanosis, Edema, Tenderness, Swelling Lower Extremity: Positive for: Normal Inspection, NORMAL PULSES. Negative for: Edema, CALF TENDERNESS Neurological: Positive for: GCS=15, CN II-XII Intact, Speech Normal, Motor Func Grossly Intact, Normal Sensory Function - Medications Active Medications: Active Medications Generic Name Dose Route Start Last Admin Trade Name Freq PRN Reason Stop Dose Admin Acetaminophen 650 mg 01/17/18 20:11 01/17/18 20:15 Tylenol 325mg Tab PO 650 mg Q4 PRN Administration Fever >100.4 F Acetaminophen 650 mg 01/18/18 21:36 01/18/18 22:27 Tylenol 325mg Tab PO 650 mg Q4 PRN Administration Headache Albuterol/Ipratropium 3 ml 01/16/18 05:17 Duoneb 3 Mg/0.5 Mg (3 Ml) Ud INH RQ6 PRN Shortness of Breath Albuterol/Ipratropium 3 ml 01/17/18 12:00 01/19/18 07:06 Duoneb 3 Mg/0.5 Mg (3 Ml) Ud INH 3 ml RQID SHANTA Administration Benzocaine/Menthol 1 ricardo 01/17/18 15:25 01/18/18 22:28 Cepacol Sore Throat PO 1 ricardo Q2 PRN Administration Sore Throat Divalproex Sodium 500 mg 01/17/18 10:45 01/19/18 09:33 Depjuan Hinkle(*Bid*) PO 500 mg BID SHANTA Administration Enoxaparin Sodium 40 mg 01/16/18 09:00 01/19/18 09:33 Lovenox SC 40 mg DAILY SHANTA Administration Protocol Folic Acid 1 mg 01/16/18 11:00 01/19/18 09:33 Folic Acid PO 1 mg DAILY SHANTA Administration Vancomycin HCl 1 gm/ Sodium 250 mls @ 166.667 mls/hr 01/17/18 12:45 01/19/18 09:39 Chloride IVPB 166.667 mls/hr Q12 SHANTA Administration Protocol Piperacillin Sod/Tazobactam 100 mls @ 100 mls/hr 01/17/18 18:00 01/19/18 06: 12 Sod 3.375 gm/ Sodium Chloride IVPB 100 mls/hr 0600,1200,1800,0000 SHANTA Administration Protocol Ondansetron HCl 4 mg 01/16/18 05:18 01/18/18 20:55 Zofran Inj IVP 4 mg Q6H PRN Administration Nausea/Vomiting Pantoprazole Sodium 40 mg 01/16/18 09:00 01/19/18 09:33 Protonix Inj IVP 40 mg DAILY SHANTA Administration Thiamine HCl 100 mg 01/16/18 11:00 01/19/18 09:34 Vitamin B1 Tab PO 100 mg DAILY SHANTA Administration Trazodone HCl 50 mg 01/17/18 10:36 01/17/18 12:35 Desyrel PO 50 mg HS PRN Administration Insomnia - Patient Studies Lab Studies: Microbiology Studies 01/16/18 10:11 Gram Stain - Final Sputum Sputum Culture - Preliminary Staphylococcus Aureus 01/16/18 10:11 MRSA Culture (Admit) - Final Nose MRSA NOT DETECTED 01/17/18 09:45 Blood Culture - Preliminary Blood NO GROWTH AFTER 24 HOURS 01/17/18 09:45 Blood Culture - Preliminary Blood NO GROWTH AFTER 24 HOURS Lab Studies 01/19/18 01/19/18 01/19/18 Range/Units 04:30 04:30 04:30 WBC 11.8 H (4.8-10.8) K/uL RBC 4.71 (4.40-5.90) Mil/uL Hgb 12.8 (12.0-18.0) g/dL Hct 38.3 (35.0-51.0) % MCV 81.4 (80.0-94.0) fl MCH 27.2 (27.0-31.0) pg MCHC 33.5 (33.0-37.0) g/dL RDW 14.4 (11.5-14.5) % Plt Count 217 (130-400) K/uL Neutrophils % (Manual) (42-75) % Band Neutrophils % (0-2) % Lymphocytes % (Manual) (20-50) % Monocytes % (Manual) (0-10) % Eosinophils % (Manual) (0-7) % Platelet Estimate (NORMAL) RBC Morphology (NORMAL) Sodium 146 (132-148) mmol/l Potassium 4.6 (3.6-5.0) MMOL/L Chloride 103 (98-107) mmol/L Carbon Dioxide 33 H (22-30) mmol/L Anion Gap 15 (10-20) BUN 7 L (9-20) mg/dl Creatinine 1.4 (0.8-1.5) mg/dl Est GFR ( Amer) > 60 Est GFR (Non-Af Amer) 60 Random Glucose 97 (75-110) mg/dL Calcium 8.8 (8.4-10.2) mg/dL Ammonia (16-60) umo/L Valproic Acid 33.7 L (50.0-100.0) ug/mL Ur L.pneumophila Ag (NEGATIVE) 01/19/18 01/18/18 01/17/18 Range/Units 04:30 04:45 Unknown WBC (4.8-10.8) K/uL RBC (4.40-5.90) Mil/uL Hgb (12.0-18.0) g/dL Hct (35.0-51.0) % MCV (80.0-94.0) fl MCH (27.0-31.0) pg MCHC (33.0-37.0) g/dL RDW (11.5-14.5) % Plt Count (130-400) K/uL Neutrophils % (Manual) 86 H (42-75) % Band Neutrophils % 1 (0-2) % Lymphocytes % (Manual) 5 L (20-50) % Monocytes % (Manual) 6 (0-10) % Eosinophils % (Manual) 2 (0-7) % Platelet Estimate Normal (NORMAL) RBC Morphology Normal (NORMAL) Sodium (132-148) mmol/l Potassium (3.6-5.0) MMOL/L Chloride (98-107) mmol/L Carbon Dioxide (22-30) mmol/L Anion Gap (10-20) BUN (9-20) mg/dl Creatinine (0.8-1.5) mg/dl Est GFR ( Amer) Est GFR (Non-Af Amer) Random Glucose (75-110) mg/dL Calcium (8.4-10.2) mg/dL Ammonia < 9 L (16-60) umo/L Valproic Acid (50.0-100.0) ug/mL Ur L.pneumophila Ag Negative (NEGATIVE) Laboratory Results - last 24 hr 01/17/18 01/18/18 01/19/18 Unknown 04:45 04:30 WBC RBC Hgb Hct MCV MCH MCHC RDW Plt Count Neutrophils % (Manual) 86 H Band Neutrophils % 1 Lymphocytes % (Manual) 5 L Monocytes % (Manual) 6 Eosinophils % (Manual) 2 Platelet Estimate Normal RBC Morphology Normal Sodium Potassium Chloride Carbon Dioxide Anion Gap BUN Creatinine Est GFR ( Amer) Est GFR (Non-Af Amer) Random Glucose Calcium Ammonia < 9 L Valproic Acid Ur L.pneumophila Ag Negative 01/19/18 01/19/18 01/19/18 04:30 04:30 04:30 WBC 11.8 H RBC 4.71 Hgb 12.8 Hct 38.3 MCV 81.4 MCH 27.2 MCHC 33.5 RDW 14.4 Plt Count 217 Neutrophils % (Manual) Band Neutrophils % Lymphocytes % (Manual) Monocytes % (Manual) Eosinophils % (Manual) Platelet Estimate RBC Morphology Sodium 146 Potassium 4.6 Chloride 103 Carbon Dioxide 33 H Anion Gap 15 BUN 7 L Creatinine 1.4 Est GFR ( Amer) > 60 Est GFR (Non-Af Amer) 60 Random Glucose 97 Calcium 8.8 Ammonia Valproic Acid 33.7 L Ur L.pneumophila Ag Fingerstick Blood Sugar Results: 167 Review of Systems - Constitutional Constitutional: absent: Fever, Chills - Cardiovascular Cardiovascular: absent: Chest Pain, Chest Pain at Rest, Chest Pain with Activity , Claudication, Diaphoresis - Respiratory Respiratory: Cough, Dyspnea, Dyspnea on Exertion. absent: Hemoptysis, Wheezing , Snoring - Gastrointestinal Gastrointestinal: absent: Abdominal Pain, Nausea, Vomiting Critical Care Progress Note - Extremities/Vascular Does the Patient have a Central Venous Catheter?: No Does the Patient need a Central Venous Catheter?: No Does the Patient have a Harley Catheter?: No Does the Patient need a Harley Catheter?: No - Nutrition Nutrition: Nutrition Category Date Time Status Regular Diet [DIET] Diets 01/17/18 Lunch Active Assessment/Plan (1) Acute respiratory failure with hypoxemia Current Visit: Yes Status: Acute Priority: High Comment: Patient self extubated this morning, initially on 100% NRM, now transitioned to 3L nasal cannula. Breathing unlabored, O2 sat 100%. Continue IV Vancomycin and Piperacillin Sod/Tazobactam Avoid hyperoxia. Continue nebulizer treatment Maintain aspiration precautions HOB maintained at 30 degrees. Encouraged use of IS Aggressive pulmonary toilet, chest PT, suctioning (2) Aspiration pneumonia Current Visit: Yes Status: Acute Priority: High Comment: Sputum culture Positive for St aureus Antibiotics was switched to IV IV Vancomycin and Piperacillin Sod/Tazobactam on 01/17 This morning CXR revealed improved L lung infilerate Maintain aspiration precautions Blood C/S negative Urine legionella negative Mycoplasma, and pneumococcus/strep antigen pending Monitor fever curve, Tylenol PRN fevers Trend WBC count, lactate (3) LAURI (acute kidney injury) Current Visit: Yes Status: Acute Comment: IVF hydration Monitor Input/Output, daily weights Monitor renal function with basic metabolic panel (4) Substance abuse Current Visit: Yes Status: Chronic Priority: High Comment: Monitor for withdrawal symptoms. (5) DVT prophylaxis Current Visit: Yes Status: Acute Priority: High Comment: Lovenox 40 mg SC DAILY
--- NOTE | 2018-01-19 10:44 | RAD ---
PORTABLE CHEST Single frontal portable chest. Clinical history is pneumonia. Comparison is made to prior portable chest 01/17/2018. Prior endotracheal tube and nasogastric tube appear to been removed. Infiltrate at the mid to inferior left lung zones appear somewhat diminished in density yet persist in overall volume affected. Limited patchy density at the right base is appreciated medially and this may be increased in the interval slightly. Cardiomediastinal silhouette is stable exclusive of removal of aforementioned tubes with vascular pattern normal once again. No pneumothorax or pleural effusion bilaterally. IMPRESSION: Limited improvement in left-sided infiltrates with minimal infiltrate at the medial right base slightly worsened. Stable prominent cardiac silhouette. No pulmonary vascular derangement. Endotracheal and nasogastric tubes appear to have been removed in the interval.
--- NOTE | 2018-01-19 12:46 | CP.PCM.CON ---
History of Present Illness - History of Present Illness History of Present Illness: Psychiatry consult note CC: "I don't know how I ended up here." HPI: 27 yo male w/ h/o seizure disorder, BIB EMS after being found unconscious on the street, was given narcan and regained consciousness. Patient reports that he used heroin and cocaine prior to being brought to the ER but does not remember losing consciousness. He denies that it was a suicide attempt. He denies current suicidal ideation/plan/intent. He denies AH/VH/paranoia/ delusions. He does report feeling nauseous and diaphoretic. He denies acute psychiatric complaints and does not want acute inpatient psychiatric admission. He denies depression and anxiety. PPHx: 1 prior admission for psychosis in the context of active substance abuse PMHx: Seizure Disorder ALL: NKDA SHx: +Cocaine/heroin/marijuana abuse MSE: Alert but sleepy, calm, cooperative, no acute distress, speech normal, mood "okay", affect- calm/ neutral, thought process- linear/coherent, thought content- no delusions, NO SI/HI/AH/VH; fair I/J Impression: 27 yo male w/ cocaine and opioid use disorders presents s/p unintentional drug overdose. He denies depression/anxiety/macey/psychosis/ paranoia/SI/HI and does not want inpatient psychiatric admission at this time. -Recommend SW referral to discuss outpatient substance abuse treatment options -No indication for psychiatric medications at this time -No 1:1 needed for psychiatric reasons Past Patient History - Infectious Disease Hx of Infectious Diseases: None - Past Medical History & Family History Past Medical History?: Yes - Past Social History Smoking Status: Current Some Days Smoker - CARDIAC Hx Hypertension: No - PULMONARY Hx Tuberculosis: No - NEUROLOGICAL Hx Seizures: Yes (COLLEGE YEARS) - HEENT Hx HEENT Problems: No - RENAL Hx Chronic Kidney Disease: No - ENDOCRINE/METABOLIC Hx Endocrine Disorders: No - HEMATOLOGICAL/ONCOLOGICAL Hx Human Immunodeficiency Virus (HIV): No - INTEGUMENTARY Hx Dermatological Problems: No - MUSCULOSKELETAL/RHEUMATOLOGICAL Hx Musculoskeletal Disorders: No Hx Falls: No - GASTROINTESTINAL Hx Gastrointestinal Disorders: No - GENITOURINARY/GYNECOLOGICAL Hx Sexually Transmitted Disorders: No - PSYCHIATRIC Hx Substance Use: Yes - SURGICAL HISTORY Hx Surgeries: Yes Hx Orthopedic Surgery: Yes (Right Knee surg, Jaw rewired) - ANESTHESIA Hx Anesthesia: Yes Hx Anesthesia Reactions: No Meds Allergies/Adverse Reactions: Allergies Allergy/AdvReac Type Severity Reaction Status Date / Time No Known Allergies Allergy Verified 06/19/17 15:00 - Medications Medications: Current Medications Acetaminophen (Tylenol 325mg Tab) 650 mg PO Q4 PRN PRN Reason: Fever >100.4 F Last Admin: 01/17/18 20:15 Dose: 650 mg Acetaminophen (Tylenol 325mg Tab) 650 mg PO Q4 PRN PRN Reason: Headache Last Admin: 01/18/18 22:27 Dose: 650 mg Albuterol/Ipratropium (Duoneb 3 Mg/0.5 Mg (3 Ml) Ud) 3 ml INH RQ6 PRN PRN Reason: Shortness of Breath Albuterol/Ipratropium (Duoneb 3 Mg/0.5 Mg (3 Ml) Ud) 3 ml INH RQID SHANTA Last Admin: 01/19/18 11:03 Dose: 3 ml Benzocaine/Menthol (Cepacol Sore Throat) 1 ricardo PO Q2 PRN PRN Reason: Sore Throat Last Admin: 01/18/18 22:28 Dose: 1 ricardo Clonazepam (Klonopin) 1 mg PO BID PRN PRN Reason: Anxiety Last Admin: 01/19/18 11:49 Dose: 1 mg Divalproex Sodium (Depakote Dr(*Bid*)) 500 mg PO BID [facility] Last Admin: 01/19/18 09:33 Dose: 500 mg Enoxaparin Sodium (Lovenox) 40 mg SC DAILY SHANTA PRN Reason: Protocol Last Admin: 01/19/18 09:33 Dose: 40 mg Folic Acid (Folic Acid) 1 mg PO DAILY [facility] Last Admin: 01/19/18 09:33 Dose: 1 mg Vancomycin HCl 1 gm/ Sodium (Chloride) 250 mls @ 166.667 mls/hr IVPB Q12 SHANTA PRN Reason: Protocol Last Admin: 01/19/18 09:39 Dose: 166.667 mls/hr Piperacillin Sod/Tazobactam (Sod 3.375 gm/ Sodium Chloride) 100 mls @ 100 mls/ hr IVPB 0600,1200,1800,0000 SHANTA PRN Reason: Protocol Last Admin: 01/19/18 06:12 Dose: 100 mls/hr Ondansetron HCl (Zofran Inj) 4 mg IVP Q6H PRN PRN Reason: Nausea/Vomiting Last Admin: 01/18/18 20:55 Dose: 4 mg Pantoprazole Sodium (Protonix Inj) 40 mg IVP DAILY [facility] Last Admin: 01/19/18 09:33 Dose: 40 mg Thiamine HCl (Vitamin B1 Tab) 100 mg PO DAILY [facility] Last Admin: 01/19/18 09:34 Dose: 100 mg Trazodone HCl (Desyrel) 50 mg PO HS PRN PRN Reason: Insomnia Last Admin: 01/17/18 12:35 Dose: 50 mg Results - Vital Signs Recent Vital Signs: Last Vital Signs Temp 98.3 F 01/19/18 12:00 Pulse 83 01/19/18 12:00 Resp 32 H 01/19/18 12:00 BP 146/74 01/19/18 12:00 Pulse Ox 99 01/19/18 12:00 - Labs Result Diagrams: 01/19/18 04:30 01/19/18 04:30 Labs: Laboratory Results - last 24 hr 01/17/18 01/19/18 01/19/18 Unknown 04:30 04:30 WBC RBC Hgb Hct MCV MCH MCHC RDW Plt Count Sodium Potassium Chloride Carbon Dioxide Anion Gap BUN Creatinine Est GFR ( Amer) Est GFR (Non-Af Amer) Random Glucose Calcium Ammonia < 9 L Vancomycin Trough Valproic Acid 33.7 L Ur L.pneumophila Ag Negative 01/19/18 01/19/18 01/19/18 04:30 04:30 09:15 WBC 11.8 H RBC 4.71 Hgb 12.8 Hct 38.3 MCV 81.4 MCH 27.2 MCHC 33.5 RDW 14.4 Plt Count 217 Sodium 146 Potassium 4.6 Chloride 103 Carbon Dioxide 33 H Anion Gap 15 BUN 7 L Creatinine 1.4 Est GFR ( Amer) > 60 Est GFR (Non-Af Amer) 60 Random Glucose 97 Calcium 8.8 Ammonia Vancomycin Trough 9.8 Valproic Acid Ur L.pneumophila Ag
--- NOTE | 2018-01-19 16:01 | CP.PCM.PN ---
Subjective - Date & Time of Evaluation Date of Evaluation: 01/19/18 Time of Evaluation: 09:00 - Subjective Subjective: Patient was seen and examined at bedside. He appears more somenolent that yesterday but is easily arousable. State that he did not sleep well last night. He is oriented x 3 and follows commands. Repeat CXR shows improved L lung infiltrate, afebrile today but fever of 102.0 in the evening. Possible downgrade to med/surg tomorrow if leukocytosis continues to resolve and afebrile. Objective - Vital Signs/Intake and Output Vital Signs (last 24 hours): Temp Pulse Resp BP Pulse Ox 98.3 F 77 36 H 145/83 97 01/19/18 12:00 01/19/18 14:00 01/19/18 14:00 01/19/18 14:00 01/19/18 14:00 Intake and Output: 01/19/18 01/19/18 06:59 18:59 Intake Total 350 Output Total 800 Balance -450 - Medications Medications: Current Medications Acetaminophen (Tylenol 325mg Tab) 650 mg PO Q4 PRN PRN Reason: Fever >100.4 F Last Admin: 01/17/18 20:15 Dose: 650 mg Acetaminophen (Tylenol 325mg Tab) 650 mg PO Q4 PRN PRN Reason: Headache Last Admin: 01/18/18 22:27 Dose: 650 mg Albuterol/Ipratropium (Duoneb 3 Mg/0.5 Mg (3 Ml) Ud) 3 ml INH RQ6 PRN PRN Reason: Shortness of Breath Albuterol/Ipratropium (Duoneb 3 Mg/0.5 Mg (3 Ml) Ud) 3 ml INH RQID [facility] Last Admin: 01/19/18 15:32 Dose: 3 ml Benzocaine/Menthol (Cepacol Sore Throat) 1 ricardo PO Q2 PRN PRN Reason: Sore Throat Last Admin: 01/18/18 22:28 Dose: 1 ricardo Clonazepam (Klonopin) 1 mg PO BID PRN PRN Reason: Anxiety Last Admin: 01/19/18 11:49 Dose: 1 mg Divalproex Sodium (Depakote Dr(*Bid*)) 500 mg PO BID [facility] Last Admin: 01/19/18 09:33 Dose: 500 mg Enoxaparin Sodium (Lovenox) 40 mg SC DAILY [facility] PRN Reason: Protocol Last Admin: 01/19/18 09:33 Dose: 40 mg Folic Acid (Folic Acid) 1 mg PO DAILY [facility] Last Admin: 01/19/18 09:33 Dose: 1 mg Vancomycin HCl 1 gm/ Sodium (Chloride) 250 mls @ 166.667 mls/hr IVPB Q12 SHANTA PRN Reason: Protocol Last Admin: 01/19/18 09:39 Dose: 166.667 mls/hr Piperacillin Sod/Tazobactam (Sod 3.375 gm/ Sodium Chloride) 100 mls @ 100 mls/ hr IVPB 0600,1200,1800,0000 [facility] PRN Reason: Protocol Last Admin: 01/19/18 14:00 Dose: 100 mls/hr Ondansetron HCl (Zofran Inj) 4 mg IVP Q6H PRN PRN Reason: Nausea/Vomiting Last Admin: 01/18/18 20:55 Dose: 4 mg Pantoprazole Sodium (Protonix Inj) 40 mg IVP DAILY [facility] Last Admin: 01/19/18 09:33 Dose: 40 mg Thiamine HCl (Vitamin B1 Tab) 100 mg PO DAILY [facility] Last Admin: 01/19/18 09:34 Dose: 100 mg Trazodone HCl (Desyrel) 50 mg PO HS PRN PRN Reason: Insomnia Last Admin: 01/17/18 12:35 Dose: 50 mg - Labs Labs: 01/19/18 04:30 01/19/18 04:30 PT 11.7 Seconds (9.8-13.1) 01/16/18 03:14 INR 1.1 (0.9-1.2) 01/16/18 03:14 APTT 27.3 Seconds (25.6-37.1) 01/16/18 03:14 - Additional Findings Additional findings: Physical exam: Constitutional- cooperative, awake, alert Head- NCAT, PERRL Eye- PERRL, EOMI ENT- normal exam, MMM. Neck- normal inspection, supple, no JVD Respiratory- CTAB, no wheezes, scattered rhonchi, no rales Cardiovascular- RRR, +S1, +S2 no MRG GI/Abdominal- normal bowel sounds, soft, no mass, no hsm Skin- warm, dry. + Tattoos Extremities Exam- normal capillary refill, normal inspection Neurological Exam- alert, awake, oriented Psych- depressed mood, normal affect Assessment and Plan - Assessment and Plan (Free Text) Plan: 27 y/o gent with hx of Paranoid Schizophrenia ( noncompliant with his Psych meds), Hx of 1 episode of Seizure , Polysubstance Abuse was brought in after he was found unresponsive. In the ED , noted to be in respiratory failure , was intubated and admitted to ICU. Urine Drug Screen : + for Opiates, Cocaine , Cannabis . Alcohol level elevated. CXR showed large left lung consolidation. CT of head : neg. 01/17 : Today pt self extubated, fever 102.1 (1) Acute respiratory failure with hypoxemia- resolving. secondary to aspiration pneumonia and drug overdose Status: Acute Pt was initially intubated, self extubated 01/17/2018 Placed on 100% NRBM post extubation. At present changed to NC 4 liters abd saturating fine. Plan to downgrade to med/surg in AM if no further hypoxia or adverse events. [employer] Specialist recommends at least one more day of ICU monitoring given his fever and the severity of his pnuemonia. (2) Aspiration pneumonia Status: Acute CXR : large left sided consolidation Pt is febrile 102.2 yesterday, afebrile so far today with leukocytosis to 17K, now 18.6 today (increasing) Discussed with Dr Seymour - since WBC went up and pt is persistently febrile, we will change abx to IV Zosyn and Vanco Duonebs rpt CXR in am (3) Drug overdose, multiple drugs- improved mental status Status: Acute Drug Tox + for Cocaine, Opiates and Cannabis Alcohol level =72 on admission Pt now awake , oriented admits to Polysubstance abuse Psych: no need for 1:1, patient refusing psychiatric inpatient admission upon discharge (4) LAURI (acute kidney injury)- resolved Status: Acute Prerenal from dehydration/rhabdo IVF hydration ongoing (5) Rhabdomyolysis, mild, improving Status: Acute CPK level 1347--> 996, trending down continue IVF hydration (6) Schizophrenia, paranoid, chronic Status: Chronic hx of previous admission to Psych at [facility] - restart Depakote and Trazodone, Pt refuses to be on Haldol - Psych consult- no need for 1:1 DVT proph - Lovenox
[2018-01-20 05:46] LABS: HEMOGLOBIN 13.2 g/dL (12.0-18.0); MEAN CELL VOLUME 79.2 fl (80.0-94.0); MEAN CORPUSCULAR HEMOGLOBIN 26.7 pg (27.0-31.0); MEAN CORPUSCULAR HGB CONC 33.7 g/dL (33.0-37.0); RBC 4.97 Mil/uL (4.40-5.90); WHITE BLOOD COUNT 11.6 K/uL (4.8-10.8)
[2018-01-20 05:48] LABS: BLOOD UREA NITROGEN 8 mg/dl (9-20); CALCIUM 9.1 mg/dL (8.4-10.2); GFR AFRICAN-AMERICAN > 60; GFR NON-AFRICAN AMERICAN > 60
[2018-01-20] MEDS: Piperacillin/Tazobact 3.375 GM in Sodium Chloride 0.9% 100 ML IVPB SCH (06:20)
[2018-01-20] MEDS: Albuterol-Ipratrop 3 mg / 0.5 (3 ml) UD INH SCH ×3 (07:58→20:06)
--- NOTE | 2018-01-20 09:06 | CP.PCM.PN ---
Subjective - Date & Time of Evaluation Date of Evaluation: 01/20/18 Time of Evaluation: 09:06 - Subjective Subjective: pt somnolent, hd stable, nad improving, no other complaints at this time transfer to [facility] Objective - Vital Signs/Intake and Output Vital Signs (last 24 hours): Temp Pulse Resp BP Pulse Ox 98.9 F 67 11 L 135/73 99 01/20/18 04:00 01/20/18 06:00 01/20/18 06:00 01/20/18 06:00 01/20/18 06:00 Intake and Output: 01/20/18 01/20/18 06:59 18:59 Intake Total 250 Balance 250 - Medications Medications: Current Medications Acetaminophen (Tylenol 325mg Tab) 650 mg PO Q4 PRN PRN Reason: Fever >100.4 F Last Admin: 01/17/18 20:15 Dose: 650 mg Acetaminophen (Tylenol 325mg Tab) 650 mg PO Q4 PRN PRN Reason: Headache Last Admin: 01/18/18 22:27 Dose: 650 mg Albuterol/Ipratropium (Duoneb 3 Mg/0.5 Mg (3 Ml) Ud) 3 ml INH RQ6 PRN PRN Reason: Shortness of Breath Albuterol/Ipratropium (Duoneb 3 Mg/0.5 Mg (3 Ml) Ud) 3 ml INH RQID SHANTA Last Admin: 01/20/18 07:58 Dose: Not Given Benzocaine/Menthol (Cepacol Sore Throat) 1 ricardo PO Q2 PRN PRN Reason: Sore Throat Last Admin: 01/18/18 22:28 Dose: 1 ricardo Clonazepam (Klonopin) 1 mg PO BID PRN PRN Reason: Anxiety Last Admin: 01/19/18 21:22 Dose: 1 mg Divalproex Sodium (Depakote Dr(*Bid*)) 500 mg PO BID [facility] Last Admin: 01/19/18 17:44 Dose: 500 mg Enoxaparin Sodium (Lovenox) 40 mg SC DAILY [facility] PRN Reason: Protocol Last Admin: 01/19/18 09:33 Dose: 40 mg Folic Acid (Folic Acid) 1 mg PO DAILY [facility] Last Admin: 01/19/18 09:33 Dose: 1 mg Ciprofloxacin (Cipro 200mg/100ml D5w) 100 mls @ 100 mls/hr IVPB Q12 SHANTA PRN Reason: Protocol Ondansetron HCl (Zofran Inj) 4 mg IVP Q6H PRN PRN Reason: Nausea/Vomiting Last Admin: 01/20/18 06:19 Dose: 4 mg Pantoprazole Sodium (Protonix Inj) 40 mg IVP DAILY [facility] Last Admin: 01/19/18 09:33 Dose: 40 mg Thiamine HCl (Vitamin B1 Tab) 100 mg PO DAILY SHANTA Last Admin: 01/19/18 09:34 Dose: 100 mg Trazodone HCl (Desyrel) 50 mg PO HS PRN PRN Reason: Insomnia Last Admin: 01/20/18 06:19 Dose: 50 mg - Labs Labs: 01/20/18 04:45 01/20/18 04:45 PT 11.7 Seconds (9.8-13.1) 01/16/18 03:14 INR 1.1 (0.9-1.2) 01/16/18 03:14 APTT 27.3 Seconds (25.6-37.1) 01/16/18 03:14 - Constitutional Appears: Non-toxic, No Acute Distress - Head Exam Head Exam: ATRAUMATIC, NORMOCEPHALIC - Eye Exam Eye Exam: EOMI, Normal appearance, PERRL Pupil Exam: NORMAL ACCOMODATION - ENT Exam ENT Exam: Mucous Membranes Moist, Normal Exam - Neck Exam Neck Exam: Full ROM, Normal Inspection - Respiratory Exam Respiratory Exam: Clear to Ausculation Bilateral, NORMAL BREATHING PATTERN - Cardiovascular Exam Cardiovascular Exam: RRR, +S1, +S2 - GI/Abdominal Exam GI & Abdominal Exam: Soft, Normal Bowel Sounds. absent: Tenderness, Mass, Organomegaly - Extremities Exam Extremities Exam: Normal Capillary Refill. absent: Calf Tenderness - Back Exam Back Exam: absent: CVA tenderness (L), CVA tenderness (R) - Neurological Exam Neurological Exam: Alert, Awake - Psychiatric Exam Psychiatric exam: Normal Affect, Normal Mood - Skin Skin Exam: Dry, Warm Assessment and Plan - Assessment and Plan (Free Text) Plan: 27 y/o gent with hx of Paranoid Schizophrenia ( noncompliant with his Psych meds), Hx of 1 episode of Seizure , Polysubstance Abuse was brought in after he was found unresponsive. In the ED , noted to be in respiratory failure , was intubated and admitted to ICU. Urine Drug Screen : + for Opiates, Cocaine , Cannabis . Alcohol level elevated. CXR showed large left lung consolidation. CT of head : neg. 01/17 : Today pt self extubated, fever 102.1 (1) Acute respiratory failure with hypoxemia- resolved. secondary to aspiration pneumonia and drug overdose Pt was initially intubated, self extubated 01/17/2018 Placed on 100% NRBM post extubation. At present changed to NC 4 liters abd saturating fine. Downgrade to med/surg (2) Aspiration pneumonia CXR : large left sided consolidation Pt is febrile 102.2 yesterday, afebrile so far today with leukocytosis 11K trending down Per sensitivities - pt placed on Cipro Duonebs rpt CXR in am (3) Drug overdose, multiple drugs- improved mental status Status: Acute Drug Tox + for Cocaine, Opiates and Cannabis Alcohol level =72 on admission Pt now awake, oriented admits to Polysubstance abuse Psych: no need for 1:1, patient refusing psychiatric inpatient admission upon discharge Psych Consult appreciated- no admission at this time (4) LAURI (acute kidney injury)- resolved Prerenal from dehydration/rhabdo IVF hydration ongoing (5) Rhabdomyolysis, mild, improving CPK level 1347--> 996, trending down continue IVF hydration (6) Schizophrenia, paranoid, chronic hx of previous admission to Psych at [facility] - restart Depakote and Trazodone, Pt refuses to be on Haldol - Psych consult- no need for 1:1 DVT proph - Lovenox
[2018-01-20] MEDS: Benzocaine/Menthol (Cepacol) Lozenge PO PRN (09:26)
[2018-01-20] MEDS: Divalproex 500 mg DR(BID formulation) PO SCH ×2 (09:26→16:50)
[2018-01-20] MEDS: Enoxaparin 40 mg Syringe SC SCH (09:27)
[2018-01-20] MEDS: Ciprofloxacin 200mg/100ml D5W 100 ML IVPB SCH ×2 (09:53→21:26)
[2018-01-20 16:49] VITALS: RESP 20
[2018-01-20] MEDS ORDERED: Simethicone 80 mg Chewtab PO ONE (19:00)
[2018-01-21 00:10] VITALS: TEMP 98.8; O2SAT 98
--- NOTE | 2018-01-21 06:17 | PN ---
CRITICAL CARE PROGRESS NOTE DATE: 01/20/2018 LOCATION: The patient is in ICU, bed 431. TIME SPENT: 25 minutes. SUBJECTIVE: The patient is seen and evaluated at the bedside. A 27-year-old male admitted on 01/16/2018, found unresponsive on the street with narcotic overdose, vomited, and aspirated. History of seizure disorder, depression, anxiety versus other psychotic diagnosis. Overnight remains extubated on oxygen 2 L nasal cannula, afebrile, and normotensive. Telemetry, sinus rhythm. This morning; alert, awake, but appears sleepy and tired. Denies headache. No sore throat. No shortness of breath. No stridor. Denies abdominal pain. PHYSICAL EXAMINATION: VITAL SIGNS: Temperature 98.7, heart rate 71, blood pressure 127/72, mean arterial pressure 90, and oxygen saturation 95% on room air. Intake 700 and output 800, negative balance 100. Weight is 210 pounds. HEAD, EYES, EARS, NOSE AND THROAT: Pupils reactive. Conjunctivae pale. Sclerae white. NECK: Supple. CHEST: Bilateral breath sounds, clear to auscultation. No adventitious sounds noted. HEART: Rhythm regular. S1 and S2 normal. ABDOMEN: Bowel sounds present and soft. EXTREMITIES: Unremarkable. NEUROLOGIC: Nonfocal. CURRENT MEDICATIONS: Include albuterol and Atrovent 3 mL every 6 hours, Tylenol 650 every 4 hours p.r.n., Cepacol lozenges 1 lozenges p.o. every 2 hours, ciprofloxacin 200 mg IV every 12 hours, Klonopin 1 mg p.o. twice daily p.r.n., Depakote 500 mg p.o. b.i.d., Lovenox 40 subcutaneously daily, folic acid 1 mg daily, Zofran 4 mg IV every 6 hours p.r.n., Protonix 40 IV daily, thiamine 100 mg p.o. daily, and Desyrel 50 mg p.o. at bedtime. IMPRESSION AND PLAN: Neurology: Admitted with alerted mental status secondary to septic metabolic encephalopathy, aspiration pneumonia, and sputum positive for Staphylococcus aureus. Continue current antibiotic. History of seizure disorder, remains seizure free on Depakote 500 mg twice daily. The patient remains more stable, hemodynamically stable, can be to transferred to regular floor, and followup for further seizure, and continue antibiotics. Tan Valencia MD [facility] # [id number]
[2018-01-21 06:55] LABS: HEMOGLOBIN 14.9 g/dL (12.0-18.0); MEAN CORPUSCULAR HEMOGLOBIN 26.7 pg (27.0-31.0); MEAN CORPUSCULAR HGB CONC 33.8 g/dL (33.0-37.0); RBC 5.55 Mil/uL (4.40-5.90); WHITE BLOOD COUNT 11.6 K/uL (4.8-10.8)
[2018-01-21] MEDS: Albuterol-Ipratrop 3 mg / 0.5 (3 ml) UD INH SCH ×2 (07:23→11:07)
[2018-01-21 08:13] VITALS: BP 162/78; PULSE 62
[2018-01-21] MEDS: Divalproex 500 mg DR(BID formulation) PO SCH (08:54)
[2018-01-21] MEDS: Enoxaparin 40 mg Syringe SC SCH (08:55)
[2018-01-21] MEDS ORDERED: Piperacillin/Tazobact 3.375 GM in Sodium Chloride 0.9% 100 ML IVPB SCH (10:00)
[2018-01-21] MEDS: Ciprofloxacin 200mg/100ml D5W 100 ML IVPB SCH (10:39)
--- NOTE | 2018-01-21 11:34 | RAD ---
HISTORY: COMPARISON: 01/19/2018. TECHNIQUE: Chest PA and lateral FINDINGS: LINES AND TUBES: None. LUNG AND PLEURA: The lungs are well inflated and clear. There is interval near complete resolution of airspace disease in the left lung. HEART AND MEDIASTINUM: The heart is not enlarged. The hilar and mediastinal contours are within normal limits. SKELETAL STRUCTURES: The bony structures are within normal limits for the patient's age. VISUALIZED UPPER ABDOMEN: Normal. OTHER FINDINGS: None. IMPRESSION: Interval near complete resolution of airspace disease in the left lung. No acute findings.
--- NOTE | 2018-01-21 12:26 | CP.PCM.DIS ---
Provider - Provider Date of Admission: 01/16/18 05:11 Attending physician: Lindsay Lu MD Consults: Psych : Dr Knapp Time Spent in preparation of Discharge (in minutes): 35 Diagnosis - Discharge Diagnosis (1) Acute respiratory failure with hypoxemia Status: Acute Priority: High (2) Drug overdose, multiple drugs Status: Acute (3) Aspiration pneumonia Status: Acute Priority: High (4) LAURI (acute kidney injury) Status: Acute (5) Rhabdomyolysis Status: Acute (6) Substance abuse Status: Chronic Priority: High (7) Schizophrenia, paranoid, chronic Status: Chronic Hospital Course - Lab Results Lab Results: Micro Results 01/17/18 09:45 Blood Blood Culture - Preliminary NO GROWTH AFTER 4 DAYS 01/17/18 09:45 Blood Blood Culture - Preliminary NO GROWTH AFTER 4 DAYS 01/16/18 10:11 Sputum Gram Stain - Final 01/16/18 10:11 Sputum Sputum Culture - Final Staphylococcus Aureus 01/16/18 10:11 Nose MRSA Culture (Admit) - Final MRSA NOT DETECTED Most Recent Lab Values WBC 11.6 K/uL (4.8-10.8) H 01/21/18 05:30 RBC 5.55 Mil/uL (4.40-5.90) 01/21/18 05:30 Hgb 14.9 g/dL (12.0-18.0) 01/21/18 05:30 Hct 43.9 % (35.0-51.0) 01/21/18 05:30 MCV 79.0 fl (80.0-94.0) L 01/21/18 05:30 MCH 26.7 pg (27.0-31.0) L 01/21/18 05:30 MCHC 33.8 g/dL (33.0-37.0) 01/21/18 05:30 RDW 14.0 % (11.5-14.5) 01/21/18 05:30 Plt Count 349 K/uL (130-400) 01/21/18 05:30 MPV 9.6 fl (7.2-11.7) 01/18/18 04:45 Neut % (Auto) 86.4 % (50.0-75.0) H 01/18/18 04:45 Lymph % (Auto) 4.8 % (20.0-40.0) L 01/18/18 04:45 [place] % (Auto) 7.7 % (0.0-10.0) 01/18/18 04:45 Eos % (Auto) 0.8 % (0.0-4.0) 01/18/18 04:45 Baso % (Auto) 0.3 % (0.0-2.0) 01/18/18 04:45 Neut # (Auto) 16.1 K/uL (1.8-7.0) H 01/18/18 04:45 Lymph # (Auto) 0.9 K/uL (1.0-4.3) L 01/18/18 04:45 Barrow # (Auto) 1.4 K/uL (0.0-0.8) H 01/18/18 04:45 Eos # (Auto) 0.1 K/uL (0.0-0.7) 01/18/18 04:45 Baso # (Auto) 0.0 K/uL (0.0-0.2) 01/18/18 04:45 Neutrophils % (Manual) 86 % (42-75) H 01/18/18 04:45 Band Neutrophils % 1 % (0-2) 01/18/18 04:45 Lymphocytes % (Manual) 5 % (20-50) L 01/18/18 04:45 Monocytes % (Manual) 6 % (0-10) 01/18/18 04:45 Eosinophils % (Manual) 2 % (0-7) 01/18/18 04:45 Platelet Estimate Normal (NORMAL) 01/18/18 04:45 RBC Morphology Normal (NORMAL) 01/18/18 04:45 PT 11.7 Seconds (9.8-13.1) 01/16/18 03:14 INR 1.1 (0.9-1.2) 01/16/18 03:14 APTT 27.3 Seconds (25.6-37.1) 01/16/18 03:14 pCO2 61 mm/Hg (35-45) H 01/17/18 07:12 pO2 115 mm/Hg (80-100) H 01/17/18 07:12 HCO3 28.5 mmol/L (21-28) H 01/17/18 07:12 ABG pH 7.33 (7.35-7.45) L 01/17/18 07:12 ABG Total CO2 34.1 mmol/L (22-28) H 01/17/18 07:12 ABG O2 Saturation 99.6 % (95-98) H 01/17/18 07:12 ABG O2 Content 17.1 ML/dL (15-23) 01/17/18 07:12 ABG Base Excess 4.6 mmol/L (-2.0-3.0) H 01/17/18 07:12 ABG Hemoglobin 12.4 g/dL (11.7-17.4) 01/17/18 07:12 ABG Carboxyhemoglobin 1.6 % (0.5-1.5) H 01/17/18 07:12 POC ABG HHb (Measured) 0.4 % (0.0-5.0) 01/17/18 07:12 ABG Methemoglobin 1.1 % (0.0-3.0) 01/17/18 07:12 ABG O2 Capacity 17.2 mL/dL (16-24) 01/17/18 07:12 Rich Test Yes 01/17/18 07:12 ABG Potassium 4.4 mmol/L (3.6-5.2) 01/16/18 10:43 A-a O2 Difference 522.0 mm/Hg 01/17/18 07:12 Hgb O2 Saturation 96.9 % (95.0-98.0) 01/17/18 07:12 Sodium 141.0 mmol/L (132-148) 01/16/18 10:43 Chloride 112.0 mmol/L (98-107) H 01/16/18 10:43 Glucose 152 mg/dL (75-110) H 01/16/18 10:43 Lactate 2.9 mmol/L (0.7-2.1) H 01/16/18 10:43 Vent Mode A/c 01/17/18 05:09 Mechanical Rate 12 01/17/18 05:09 FiO2 100.0 % 01/17/18 07:12 Tidal Volume 500 01/17/18 05:09 PEEP 5 01/17/18 05:09 Inspiratory BiPAP 12 01/16/18 04:33 Expiratory BiPAP 6 01/16/18 04:33 Crit Value Called To Dr sania worthy 01/16/18 01:35 Crit Value Called By 333 01/16/18 01:35 Crit Value Read Back Y 01/16/18 01:35 Blood Gas Notified Time 124 01/16/18 01:35 Sodium 141 mmol/l (132-148) 01/20/18 04:45 Potassium 3.9 MMOL/L (3.6-5.0) 01/20/18 04:45 Chloride 100 mmol/L (98-107) 01/20/18 04:45 Carbon Dioxide 28 mmol/L (22-30) 01/20/18 04:45 Anion Gap 17 (10-20) 01/20/18 04:45 BUN 8 mg/dl (9-20) L 01/20/18 04:45 Creatinine 1.0 mg/dl (0.8-1.5) 01/20/18 04:45 Est GFR ( Amer) > 60 01/20/18 04:45 Est GFR (Non-Af Amer) > 60 01/20/18 04:45 Random Glucose 101 mg/dL (75-110) 01/20/18 04:45 Calcium 9.1 mg/dL (8.4-10.2) 01/20/18 04:45 Total Bilirubin 0.4 mg/dl (0.2-1.3) 01/18/18 04:45 AST 68 U/L (17-59) H 01/18/18 04:45 ALT 48 U/L (21-72) 01/18/18 04:45 Alkaline Phosphatase 99 U/L (38-126) 01/18/18 04:45 Ammonia < 9 umo/L (16-60) L 01/19/18 04:30 Total Creatine Kinase 135 U/L (55-170) 01/21/18 05:30 Total Protein 6.0 G/DL (6.3-8.2) L 01/18/18 04:45 Albumin 2.9 g/dL (3.5-5.0) L D 01/18/18 04:45 Globulin 3.0 gm/dL (2.2-3.9) 01/18/18 04:45 Albumin/Globulin Ratio 1.0 (1.0-2.1) 01/18/18 04:45 Arterial Blood Potassium 4.4 mmol/L (3.6-5.2) 01/16/18 10:43 Ur Random Sodium 85 meq/L 01/16/18 12:53 Ur Random Potassium 65.7 mmol/L 01/16/18 12:53 Vancomycin Trough 9.8 ug/mL (5.0-10.0) 01/19/18 09:15 Urine Opiates Screen Positive (NEGATIVE) H 01/16/18 05:47 Urine Methadone Screen Negative (NEGATIVE) 01/16/18 05:47 Ur Barbiturates Screen Negative (NEGATIVE) 01/16/18 05:47 Valproic Acid 33.7 ug/mL (50.0-100.0) L 01/19/18 04:30 Ur Phencyclidine Scrn Negative (NEGATIVE) 01/16/18 05:47 Ur Amphetamines Screen Negative (NEGATIVE) 01/16/18 05:47 U Benzodiazepines Scrn Positive (NEGATIVE) 01/16/18 05:47 U Oth Cocaine Metabols Positive (NEGATIVE) H 01/16/18 05:47 U Cannabinoids Screen Positive (NEGATIVE) H 01/16/18 05:47 Alcohol, Quantitative 73 mg/dl (0-10) H 01/16/18 02:17 Ur L.pneumophila Ag Negative (NEGATIVE) 01/17/18 Unknown Mycoplasma pneumon IgM 95 U/mL (<770) 01/17/18 15:30 - Hospital Course Hospital Course: 27 y/o gent with hx of Paranoid Schizophrenia ( noncompliant with his Psych meds), Hx of 1 episode of Seizure , Polysubstance Abuse was brought in after he was found unresponsive. In the ED , noted to be in respiratory failure , was intubated and admitted to ICU. Urine Drug Screen : + for Opiates, Cocaine , Cannabis . Alcohol level elevated. CXR showed large left lung consolidation. CT of head : neg. 01/17 : pt self extubated (1) Acute respiratory failure with hypoxemia- resolved. secondary to aspiration pneumonia and drug overdose Pt was initially intubated, self extubated 01/17/2018 Placed on 100% NRBM post extubation then Oxygen NC Pt is saturating 98-100% on RA Ambulating around the units rpt CXR today 01/21: resolution of PNA (2) Aspiration pneumonia CXR : large left sided consolidation Pt was febrile 102.2- now resolved with leukocytosis - trended down Pt was on IV Zosyn and Vanco- will d/c pt home on PO Levaquin Duonebs rpt CXR : near resolution of consolidation (3) Drug overdose, multiple drugs- improved mental status Status: Acute Drug Tox + for Cocaine, Opiates and Cannabis Alcohol level =72 on admission Pt now awake, oriented admits to Polysubstance abuse Psych: no need for 1:1, patient refusing psychiatric inpatient admission upon discharge Psych Consult appreciated- no admission at this time (4) LAURI (acute kidney injury)- resolved Prerenal from dehydration/rhabdo IVF hydration (5) Rhabdomyolysis, mild, improved CPK level 134- trended down IVF hydration (6) Schizophrenia, paranoid, chronic hx of previous admission to Psych at [facility] - restarted Depakote and Trazodone, Pt refuses to be on Haldol - Psych consult- no need for 1:1 - ff up with outpt Psych jacinta DVT proph - Lovenox Discharge Exam - Head Exam Head Exam: ATRAUMATIC, NORMAL INSPECTION, NORMOCEPHALIC - Eye Exam Eye Exam: EOMI, Normal appearance Pupil Exam: NORMAL ACCOMODATION - ENT Exam ENT Exam: Mucous Membranes Moist, Normal External Ear Exam - Neck Exam Neck exam: Full Rom - Respiratory Exam Respiratory Exam: NORMAL BREATHING PATTERN. absent: Respiratory Distress - Cardiovascular Exam Cardiovascular Exam: REGULAR RHYTHM, +S1, +S2 - GI/Abdominal Exam GI & Abdominal Exam: Normal Bowel Sounds, Soft. absent: Tenderness - Extremities Exam Extremities exam: full ROM, normal capillary refill, normal inspection, pedal pulses present - Back Exam Back exam: FULL ROM. absent: CVA tenderness (L), CVA tenderness (R) - Neurological Exam Neurological exam: Alert, CN II-XII Intact, Normal Gait, Oriented x3, Reflexes Normal - Psychiatric Exam Psychiatric exam: Normal Affect, Normal Mood - Skin Skin Exam: Dry, Normal Color, Warm Discharge Plan - Discharge Medications Prescriptions: Clonazepam [Klonopin] 0.5 mg PO BID PRN #10 tablet PRN Reason: Anxiety Divalproex [Depakote DR] 500 mg PO BID #60 tcp Levofloxacin [Levaquin] 500 mg PO DAILY #7 tablet traZODone [Desyrel] 50 mg PO HS PRN #15 tab PRN Reason: Insomnia - Follow Up Plan Condition: GOOD Disposition: HOME/ ROUTINE Instructions: Pneumonia, Adult (DC), Polysubstance Abuse (DC) Additional Instructions: appt with Psych jacinta february 04 at 3:20pm at [facility] with Dr. Emily Cruz Referrals: [facility] [Outside] [facility] [place] [Outside] Ronal Guerra APN [Staff Provider] -
== END 2018-01-21 15:25 | disposition home or self-care (01) | DRG 208 ==
LOC: H.ER 01:15 → H.ERHOLD 05:11 → H.ICU/CCU 07:14 → H.MEDSURG1 01-20 13:52
PROVIDERS: ADMIT Internal Medicine; ATTEND Internal Medicine
PROC: 0BH17EZ Insertion of Endotracheal Airway into Trachea, Via Natural or Artificial Opening (ICD-10-PCS; principal; 2018-01-16)
PROC: 5A1935Z Respiratory Ventilation, Less than 24 Consecutive Hours (ICD-10-PCS; 2018-01-16)
DX: J96.01 Acute respiratory failure with hypoxia (principal); J69.0 Pneumonitis due to inhalation of food and vomit; M62.82 Rhabdomyolysis; N17.9 Acute kidney failure, unspecified; F20.0 Paranoid schizophrenia; E87.2 Acidosis; T40.1X1A Poisoning by heroin, accidental (unintentional), initial encounter; I10 Essential (primary) hypertension; G40.909 Epilepsy, unspecified, not intractable, without status epilepticus; F41.8 Other specified anxiety disorders; Z91.19 Patient's noncompliance with other medical treatment and regimen; F11.10 Opioid abuse, uncomplicated; F12.10 Cannabis abuse, uncomplicated; Z87.891 Personal history of nicotine dependence